=== PATIENT | male | born 1960 | race American Indian/Alaskan Native ===

== ENCOUNTER → 2024-07-12 | Outpatient (CLI) | payer BC, MEDICAID, SELFPAY ==
--- NOTE | 2024-07-12 12:35 | XR_ITS ---
Examination: Abdomen sonogram, complete Date and time of exam: Grade 4 2024 at 10 3:00 PM INDICATIONS: Left flank pain beginning one month ago, diagnosis cirrhosis. Technique: Multiple real-time grayscale transabdominal sonographic images of the abdomen have been obtained. Findings: Negative for gallstones Gallbladder wall 0.7 cm with edema Common bile duct 0.2 cm Pancreas obscured by bowel gas Aorta not enlarged Liver 15.2 cm irregular contour fatty liver Normal hepatopedal portal venous flow Patent IVC Right kidney 10.3 x 6.2 x 3.5 cm cortex 2.4 cm Left kidney 12.7 x 7.2 x 5.3 cm renal cortex 1.4 cm Mild renal parenchymal scar formation Spleen 8.6 cm IMPRESSION: Consider HIDA scan or MRCP follow-up to confirm acute acalculous cholecystitis Cirrhosis, no focal liver lesions
== END | disposition home or self-care (01) ==
LOC: CDIM 11:59
PROVIDERS: PCP Nurse Practitioner Family; Referring Provider Nurse Practitioner Family; Visit Provider Nurse Practitioner Family
DX: K74.60 Unspecified cirrhosis of liver (principal)
CPT/HCPCS: 76700

== ENCOUNTER → 2024-09-22 | Outpatient (CLI) | payer BC, MEDICAID, SELFPAY ==
--- NOTE | 2024-09-22 09:19 | XR_ITS ---
Examination: PA lateral chest 2 views TECHNIQUE: Upright PA lateral chest 2 views Exam date and time: September 1019 hours Comparison April 17, 2022 INDICATIONS: Coughing 3 months. FINDINGS: Early pneumonia in the right upper lobe Normal heart size Moderate osteopenia IMPRESSION: Early pneumonia in the right upper lobe
--- NOTE | 2024-09-22 09:21 | XR_ITS ---
Examination: Abdomen sonogram, complete Date and time of exam: September 22, 2024 0935 hours INDICATIONS: Diagnosis cirrhosis. Technique: Multiple real-time grayscale transabdominal sonographic images of the abdomen have been obtained. Findings: Negative for gallstones Gallbladder wall 0.54 cm Common bile duct 0.2 cm Pancreatic head 2.1 cm Mid and distal aorta not enlarged Liver 11.5 cm irregular contour mild ascites Normal hepatopedal portal venous flow Patent IVC Right kidney 10.3 cm cortex 1.6 cm Left kidney 13.6 cm in the cortex 1.9 cm Mild left renal parenchymal scar formation Spleen 9.3 cm IMPRESSION: Abnormal thickening of the gallbladder wall, which may relate to the patient's ascites Cirrhosis No focal liver lesions
== END | disposition home or self-care (01) ==
PROVIDERS: PCP Nurse Practitioner Family; Referring Provider Nurse Practitioner Family; Visit Provider Nurse Practitioner Family
DX: K70.31 Alcoholic cirrhosis of liver with ascites (principal); K82.8 Other specified diseases of gallbladder; J18.9 Pneumonia, unspecified organism
CPT/HCPCS: 71046; 76700

== ENCOUNTER → 2025-01-27 | Outpatient (CLI) | payer BC, OTHER, SELFPAY ==
--- NOTE | 2025-01-27 | XR_ITS ---
Examination: Retroperitoneal ultrasound, complete Technique: Multiple high resolution grayscale images of the retroperitoneum obtained, including kidneys and bladder. Exam date and time:January 27, 2025 0741 hours INDICATIONS: Bilateral flank pain beginning 2 weeks ago FINDINGS: Right kidney 11.4 cm cortex 2.3 cm Midpole 9 mm, 6 mm calculi Left kidney 12.4 cm cortex 2.0 cm Moderate renal scar formation Contracted urinary bladder No prostatomegaly IMPRESSION: Nonobstructing right renal calculi, no hydronephrosis Moderate bilateral renal parenchymal scar formation
== END | disposition home or self-care (01) ==
LOC: CDIM 07:27
PROVIDERS: PCP Nurse Practitioner Family; Referring Provider Nurse Practitioner Family; Visit Provider Nurse Practitioner Family
DX: N20.0 Calculus of kidney (principal); N28.89 Other specified disorders of kidney and ureter
CPT/HCPCS: 76770

== ENCOUNTER 2025-03-13 17:14 | Inpatient (IN) | payer BC, OTHER, SELFPAY ==
[2025-03-13 17:22] VITALS: BP 138/63; PULSE 107; RESP 18; TEMP 37.2; O2SAT 98; BMI 32.9
--- NOTE | 2025-03-13 17:26 | XR_ITS ---
Examination: CT abdomen and pelvis without contrast. Coronal 3-D reconstructions. Sagittal 2-D reconstructions. Date and time of exam:March 13, 2025 1742 hrs., Comparison September 09, 2023. Indications: Generalized abdominal pain and swelling today diagnosis cirrhosis CTDI: vol (mGy): 10.6 DLP: (mGycm): 693 Technique: Axial images of the abdomen have been obtained, 3 mm slice thickness Intravenous contrast material has not been administered. Low dose protocols were performed. One or more of the following dose reduction techniques were used; automated exposure control, adjustment of the mA and/or KV according to patient size, use of iterative reconstruction technique. Findings: Small right pleural effusion Small pericardial effusion Cirrhosis, liver nodular in contour Significant ascites Mild splenomegaly Suspicious for esophageal varices Perigastric varices No pancreatic mass No renal or ureteral calculi No bowel obstruction No diverticulitis Prostatomegaly AP dimension 3.6 cm Contracted urinary bladder Fat-containing inguinal hernias Significant osteopenia Impression: Cirrhosis. Significant ascites. Mild splenomegaly. Suspicious for esophageal varices, gastric varices No renal or ureteral calculi, no hydronephrosis No bowel obstruction
--- NOTE | 2025-03-13 17:27 | PD.EDRME ---
Rapid Medical Screening Exam RME Arrival date/time: 03/13/25 17:14 This is a case of 65-year-old male with history of ascites and cirrhosis came in in the emergency room due to abdominal pain and abdominal distention patient is scheduled to have paracentesis but due to cough and congestion that is patient procedure is delayed due to worsening of the symptoms this patient decided to stop consult here in the emergency room Chief Complaint: Flu Like Symptoms Time Seen by Provider: 03/13/25 17:22 Vital signs: Vital Signs Temperature 98.9 F 03/13/25 17:22 Pulse Rate 107 H 03/13/25 17:22 Respiratory Rate 18 03/13/25 17:22 Blood Pressure 138/63 H 03/13/25 17:22 Pulse Oximetry (%) 98 03/13/25 17:22 Oxygen Delivery Method Room Air 03/13/25 17:22
[2025-03-13 17:46] LABS: Basophils # (Auto) 0.1 Thou/mm3 (0.0-0.2); Basophils % (Auto) 1 % (0-2.5); Eosinophils # (Auto) 0.3 Thou/mm3 (0.0-0.5); Eosinophils % (Auto) 4 % (0-10); Hematocrit 23.3 % (41.0-53.0); Immature Granulocytes Auto 0.02 Thou/mm3 (0.00-0.00); Lymphocytes # (Auto) 1.9 Thou/mm3 (1.0-4.8); Lymphocytes % (Auto) 23 % (10-50); Mean Corpuscular HGB Conc 33.5 g/dl (31.0-37.0); Mean Corpuscular Hemoglobin 31.8 pg (25.0-35.0); Mean Corpuscular Volume 95 fL (80-100); Monocytes # (Auto) 1.0 Thou/mm3 (0.0-0.8); Monocytes % (Auto) 12 % (0-12); Neutrophils # (Auto) 5.0 Thou/mm3 (1.8-7.7); Neutrophils % (Auto) 60 % (37-80); Nucleated Red Blood Cell # 0.00 Thou/mm3 (0.00-0.00); Nucleated Red Blood Cell % 0 /100 WBC (0); Platelet Count 101 Thou/mm3 (140-440); RDW Standard Deviation 57.1 fL (35.1-43.9); Red Blood Count 2.45 Miln/mm3 (4.50-5.90); White Blood Count 8.3 Thou/mm3 (3.8-10.6)
[2025-03-13 17:55] LABS: Hemoglobin 7.8 g/dL (13.5-16.0)
[2025-03-13 18:23] LABS: Alanine Aminotransferase 18 U/L (10-49); Albumin, Serum 3.0 gm/dL (3.4-4.8); Albumin/Globulin Ratio 0.8 (1.2-2.2); Alkaline Phosphatase 84 U/L (46-116); Anion Gap 10 (7-16); Aspartate Amino Transferase 46 U/L (0-34); BUN/Creatinine Ratio 5 Ratio (12-20); Bilirubin,Total 6.3 mg/dL (0.3-1.2); Blood Urea Nitrogen < 5 mg/dL (9-23); Calcium 8.6 mg/dL (8.3-10.6); Calcium (Corrected) 9.4 mg/dL (8.5-10.1); Carbon Dioxide 21.8 mMol/L (20.0-31.0); Chloride 105 mMol/L (98-107); Creatinine (Component) 1.0 mg/dL (0.6-1.3); Estimated Creatinine Clearance 78.9 mL/min (>60); Globulin 3.8 gm/dL (2.3-3.5); Glucose 89 mg/dL (74-106); Lipase 49 U/L (12-53); Osmolality,Calculated 270 (275-295); Potassium 2.9 mMol/L (3.4-5.1); Sodium 137 mMol/L (136-145); Total Protein 6.8 gm/dL (5.7-8.2); eGFR > 60 See Note
[2025-03-13 19:42] LABS: Collection Type, Urine Voided; Squamous Epithelial Cell,Urine 0 /hpf (0-5)
[2025-03-13 19:58] LABS: Bacteria,Urine Rare; Bilirubin,Urine 1+ (Negative); Blood,Urine Negative (Negative); Clarity,Urine Clear (Clear/Hazy); Color,Urine Drk-Yellow (Lt Yel-Yel); Glucose, Urine Negative (Negative); Ketones,Urine Negative (Negative); Leukocyte Esterase,Urine Negative (Negative); Nitrite,Urine Negative (Negative); PH,Urine 6.0 (5.0-7.0); Protein,Urine Negative (Neg - Trace); RBC,Urine 2 /hpf (0-3); Specific Gravity,Urine 1.017 (1.001-1.035); Urobilinogen,Urine 12 mg/dL (0.0-1.0); WBC,Urine < 1 /hpf (0-5)
[2025-03-13 20:01] LABS: Amorphous Crystals,Urine Present (Absent)
--- NOTE | 2025-03-13 20:54 | PD.EDADULT ---
ED General RME/HPI General Chief complaint: Flu Like Symptoms Stated complaint: COUGH, NO APPETITE X 7 DAYS Time Seen by Provider: 03/13/25 17:22 Arrival date/time: 03/13/25 17:14 RME / HPI RME / HPI narrative: 03/13/25 17:14 64 y/o male with PMHx cirrhosis secondary to alcohol alcohol abuse, hyperlipidemia, and hypertension comes in for an evaluation of worsening abdominal distention and some abdominal pain. Patient reports that his abdomen has been worsening over time, and was post to get a paracentesis done, however has not been able to get it done yet. [place] currently not on any water pills. He says he has had an endoscopy before done over 4 years ago. He says he was diagnosed with cirrhosis 6 months ago clinically, however has not had a liver biopsy. He has not drank in over 3 months. Denies any chest pain, shortness of breath, nausea, vomiting, however complains of a cough at this time. He denies any hematochezia, hematemesis. He does endorse decreased appetite as well. Related Data Home Medications ?Medication ?Instructions ?Recorded ?Confirmed carvedilol 3.125 mg tablet 3.125 mg PO BID 04/17/22 04/17/22 losartan 50 mg tablet 50 mg PO DAILY 04/17/22 04/17/22 simvastatin 10 mg tablet 10 mg PO HS 04/17/22 04/17/22 Previous Rx's ?Medication ?Instructions ?Recorded pantoprazole 40 mg tablet,delayed 40 mg PO BID #60 tabs 04/19/22 release sucralfate 100 mg/mL oral 1 g (10 mL) PO QID #200 mL 04/19/22 suspension Allergies Allergy/AdvReac Type Severity Reaction Status Date / Time bee pollen Allergy Swelling Verified 03/13/25 17:19 of Lip/Tongue/Throat peach Allergy Swelling Verified 03/13/25 17:19 of Lip/Tongue/Throat Review of Systems Review of Systems Narrative Review of Systems: 12 point ROS reviewed and is otherwise negative unless stated directly in the HPI ED Exam Narrative Physical exam: General: AAOx3, NAD, wearing glasses HEENT: Moist mucous membranes, conjunctiva clear, EOMI, PERRLA, scleral icterus present bilaterally Cardiovascular: S1, S2, radial pulses +2 bilat, RRR Pulmonary: CTAB bilat no cough, no wheezing GI: Significant abdominal distention in addition to positive fluid wave shift, hemangiomas present, slight tenderness to palpation Extremities: No presence of trace or pitting edema in lower extremities bilaterally, dorsalis pedis pulses +2 bilaterally Neuro: AAOx3, no focal motor or sensory deficits in the UE or LE bilat Psych: Good judgement, thought and behavior Course Quality Measures none Orders Category Date Time Status Admit to Inpatient Status Routine Admission 03/13/25 23:48 Active Patient Condition Routine Admission 03/13/25 23:48 Ordered Bedside COVID-19 Antigen Test NOW Care 03/13/25 17:26 Active Bedside Influenza A&B Antigen Test NOW Care 03/13/25 17:26 Completed Continuous Pulse Oximetry NOW Care 03/13/25 23:53 Active EKG (ED ONLY) *Do not use* NOW Care 03/13/25 22:01 Completed Endoscopy Consents .On arrival Care 03/13/25 23:27 Active Flu & Pneumonia Vaccine Screen ONCE Care 03/14/25 00:03 Active Insert IV NOW Care 03/13/25 22:00 Active May take PO meds w/sips of H2O NEEDED Care 03/13/25 23:48 Active Miscellaneous Nursing Order NOW Care 03/13/25 23:24 Active NPO NOW Care 03/13/25 23:52 Active NPO after Midnight ONCE Care 03/13/25 22:51 Active Notify provider NEEDED Care 03/13/25 23:48 Active Obtain weight daily Care 03/13/25 23:50 Active Occult Blood,Stool (Nursing) NOW Care 03/13/25 22:19 Active Sequential Compression Device QSHIFT Care 03/13/25 23:58 Active Strict Intake and Output Routine Care 03/13/25 22:00 Ordered Urinary Catheter QS Care 03/13/25 23:53 Active Consult to Gastroenterology Stat Cons 03/13/25 22:50 Ordered Diet NPO (NOW) Diet 03/13/25 23:52 Active Diet NPO after Midnight Diet 03/14/25 00:[address] abdomen pelvis wo con Stat Exams 03/13/25 17:26 Completed EKG (ED Only) Stat Exams 03/13/25 22:01 Draft Blood Culture (Lab) Stat Lab 03/13/25 23:00 Received CBC AM DRAW Lab 03/14/25 05:00 Ordered CBC AM DRAW Lab 03/15/25 05:00 Ordered CBC AM DRAW Lab 03/16/25 05:00 Ordered CBC Stat Lab 03/13/25 17:33 Completed CMP [Comprehensive Metabolic Panel] Stat Lab 03/13/25 17:33 Completed Comprehensive Metabolic Panel AM DRAW Lab 03/14/25 05:00 Ordered Comprehensive Metabolic Panel AM DRAW Lab 03/15/25 05:00 Ordered Comprehensive Metabolic Panel AM DRAW Lab 03/16/25 05:00 Ordered Influenza A & B Rapid Panel Stat Lab 03/13/25 20:50 Completed Influenza A & B Rapid Panel Stat Lab 03/13/25 22:01 Ordered Lipase Stat Lab 03/13/25 17:33 Completed Magnesium AM DRAW Lab 03/14/25 05:00 Ordered Magnesium AM DRAW Lab 03/15/25 05:00 Ordered Magnesium AM DRAW Lab 03/16/25 05:00 Ordered PTT [Partial Thromboplastin Time] Stat Lab 03/13/25 17:33 Completed Phosphorous AM DRAW Lab 03/14/25 05:00 Ordered Phosphorous AM DRAW Lab 03/15/25 05:00 Ordered Phosphorous AM DRAW Lab 03/16/25 05:00 Ordered Prothrombin Time with INR AM DRAW Lab 03/14/25 05:00 Ordered Prothrombin Time with INR Stat Lab 03/13/25 17:33 Completed Urinalysis Stat Lab 03/13/25 19:10 Completed Acetaminophen Tab [Tylenol Tab] Med 03/13/25 23:48 Ordered 650 mg PO Q6H PRN Acetaminophen Tab [Tylenol Tab] Med 03/13/25 23:53 Ordered 650 mg PO Q6H PRN Benzonatate [Tessalon] Med 03/13/25 21:59 Discontinued 100 mg PO X1 ONE Furosemide Inj [Lasix Inj] Med 03/14/25 09:00 Ordered 40 mg IVP QDAY Furosemide Inj [Lasix Inj] Med 03/13/25 21:59 Discontinued 40 mg IVP X1 ONE Ondansetron Inj [Zofran Inj] Med 03/13/25 23:48 Ordered 4 mg IVP Q6H PRN Pantoprazole Inj [Protonix Inj] Med 03/14/25 09:00 Active 40 mg IVP BID Pantoprazole Inj [Protonix Inj] Med 03/13/25 21:59 Discontinued 80 mg IVP X1 ONE Potassium Chloride [K-Dur] Med 03/13/25 20:53 Discontinued 40 meq PO X1 ONE Senna [Senokot] Med 03/13/25 23:58 Ordered 1 tab PO QDAY PRN Sodium Chloride 0.9% [Ns] 100 ml Med 03/13/25 21:59 Active Octreotide Acet Inj [SandoSTATIN Inj] 1,000 mcg IV 50 mcg/hr Sodium Chloride 0.9% [Ns] 100 ml Med 03/13/25 21:59 Pending Octreotide Acet Inj [SandoSTATIN Inj] 1,000 mcg IV 50 mcg/hr Spironolactone [Aldactone] Med 03/14/25 09:00 Ordered 50 mg PO BID amLODIPine BESYLATE [Norvasc] Med 03/14/25 09:00 Ordered 5 mg PO QDAY carVEDILOL [Coreg] Med 03/14/25 08:00 Ordered 3.125 mg PO BIDWM carVEDILOL [Coreg] Med 03/13/25 22:49 Discontinued 3.125 mg PO X1 ONE cefTRIAXone/D5w 1gm IV premix [Rocephin/D5w 1gm IV Med 03/13/25 22:54 Discontinued premix] 1 gm in 50 ml IV X1 Code Status Routine Oth 03/13/25 23:48 Ordered Vital Signs Vital signs: Vital Signs Temperature 98.9 F 03/13/25 17:22 Pulse Rate 107 H 03/13/25 17:22 Respiratory Rate 18 03/13/25 17:22 Blood Pressure 138/63 H 03/13/25 17:22 Pulse Oximetry (%) 98 03/13/25 17:22 Oxygen Delivery Method Room Air 03/13/25 17:22 Discharge Plan Plan Patient Disposition: Admit Acute Care w/in Hospital Prescriptions/Referrals Prescriptions/Med Rec: No Action losartan 50 mg tablet 50 mg PO DAILY Patient Comments: TAKE 1 TABLET BY MOUTH EVERY DAY simvastatin 10 mg tablet 10 mg PO HS Patient Comments: TAKE 1 TABLET BY MOUTH EVERY DAY IN THE EVENING carvedilol 3.125 mg tablet 3.125 mg PO BID Patient Comments: TAKE 1 TABLET BY MOUTH TWICE A DAY FOR 3 MONTHS sucralfate 100 mg/mL Suspension 1 g PO QID Qty: 200 0RF pantoprazole 40 mg tablet,delayed release (DR/EC) 40 mg PO BID Qty: 60 0RF Referrals: Jose Luque PA-C [Primary Care Provider] - In 1 week Problem List Clinical Impression: Upper gastrointestinal hemorrhage, Cirrhosis Patient/Caregiver Discharge Instructions Print Language: Bruneian Stand Alone Forms: Josefina Award Info., Patient Portal Info Letter MDM Narrative MDM hospital course (for use when minimal MDM required): 2052: With Dr. Bhatt, GI, who recommends admission for further workup of acute blood loss anemia, and also decompensated liver cirrhosis. Will also give oral potassium. 2134: GUICHO performed with FOBT positive. Will initiate octreotide drip in addition to loading dose Protonix. Lasix 40 mg IV given also. Also given Tessalon pearls for cough. 2299: Spoke with primary hospitalist team who will review the case for admission. Also ordered Coreg 3.125, and Rocephin for SBP prophylaxis. 110: Hospitalist team accepts patient for admission. Medication Administration(s) Medication Administration History Acetaminophen (Acetaminophen 325 Mg Tablet) 650 mg PO Q6H PRN PRN Reason: Fever >100.4 Stop: 04/12/25 23:47 Acetaminophen (Acetaminophen 325 Mg Tablet) 650 mg PO Q6H PRN PRN Reason: PAIN SCALE 1-3 (mild Stop: 04/12/25 23:52 Amlodipine Besylate (Amlodipine Besylate 5 Mg Tablet) 5 mg PO QDAY OSMAN Stop: 04/13/25 08:59 Carvedilol (Carvedilol 3.125 Mg Tablet) 3.125 mg PO BIDWM OSMAN Stop: 04/13/25 07:59 Furosemide (Furosemide Inj 10 Mg/Ml 4ml Vial) 40 mg IVP QDAY OSMAN Stop: 04/13/25 08:59 Octreotide Acetate 1,000 mcg/ (Sodium Chloride) 102 mls @ 5.1 mls/hr IV .Q20H ONE; Protocol Stop: 03/14/25 17:58 Last Admin: 03/13/25 22:31 Dose: 50 mcg/hr, 5.1 mls/hr Documented By: LIN Octreotide Acetate 1,000 mcg/ (Sodium Chloride) 102 mls @ 5.1 mls/hr IV .Q20H OSMAN; Protocol Stop: 03/18/25 21:59 Ondansetron HCl (Ondansetron Inj 2 Mg/Ml Inj 2 Ml) 4 mg IVP Q6H PRN; Protocol PRN Reason: NAUSEA OR VOMITING Stop: 04/12/25 23:47 Pantoprazole Sodium (Pantoprazole Inj 40 Mg Vial) 40 mg IVP BID OSMAN Stop: 04/13/25 08:59 Sennosides (Senna Tablet) 1 tab PO QDAY PRN; Protocol PRN Reason: CONSTIPATION Stop: 04/13/25 08:59 Spironolactone (Spironolactone 25 Mg Tablet) 50 mg PO BID OSMAN Stop: 04/13/25 08:59 Discontinued Medications Benzonatate (Benzonatate 100 Mg Capsule) 100 mg PO X1 ONE; Protocol Stop: 03/13/25 22:00 Last Admin: 03/13/25 22:50 Dose: 100 mg Documented By: LIN Carvedilol (Carvedilol 3.125 Mg Tablet) 3.125 mg PO X1 ONE Stop: 03/13/25 22:50 Last Admin: 03/13/25 23:10 Dose: 3.125 mg Documented By: POPEYE Furosemide (Furosemide Inj 10 Mg/Ml 4ml Vial) 40 mg IVP X1 ONE Stop: 03/13/25 22:00 Last Admin: 03/13/25 22:29 Dose: 40 mg Documented By: LIN Ceftriaxone Sodium/Dextrose (Rocephin/D5w 1gm Iv Premix) 1 gm in 50 mls @ 100 mls/hr IV X1 ONE Stop: 03/13/25 23:23 Last Admin: 03/13/25 23:27 Dose: 100 mls/hr Documented By: LIN Pantoprazole Sodium (Pantoprazole Inj 40 Mg Vial) 80 mg IVP X1 ONE Stop: 03/13/25 22:00 Last Admin: 03/13/25 22:29 Dose: 80 mg Documented By: LIN Potassium Chloride (Potassium Chloride 20 Meq Tabcr) 40 meq PO X1 ONE Stop: 03/13/25 20:54 Last Admin: 03/13/25 21:37 Dose: 40 meq Documented By: LIN Consultations/Discussions re: Management Consult #1: Date/time: 03/13/25 08:53 pm Physician, specialty, service, details: 2052: With Dr. Bhatt, GI, who recommends admission for further workup of acute blood loss anemia, and also decompensated liver cirrhosis. Will also give oral potassium. Consult #2: Date/time: 03/13/25 11:00 pm Physician, specialty, service, details: 2300: Spoke with primary hospitalist team who will review the case for admission. 0011: Hospitalist team accepts patient for admission Diagnosis Diagnoses ruled out and/or further discussions: Decompensated liver cirrhosis, GI bleed, PUD
[2025-03-13 21:19] LABS: Influenza A Ag Negative; Influenza B Ag Negative
[2025-03-13 21:22] LABS: INR 1.5 (0.9-1.3); Partial Thromboplastin Time 29.1 Seconds (22.0-36.0); Prothrombin Time 15.8 Seconds (9.0-12.2)
[2025-03-13 21:34] VITALS: BP 153/69; PULSE 106; RESP 20; TEMP 36.9; O2SAT 100
--- NOTE | 2025-03-13 22:01 | EKG_ITS ---
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
[2025-03-13 22:29] VITALS: BP 137/74; PULSE 102
[2025-03-13] MEDS: FUROSEMIDE INJ 10 MG/ML 4ML VIAL 40 MG IVP (22:29)
[2025-03-13] MEDS: OCTREOTIDE ACET INJ 1,000 MCG in SODIUM CHLORIDE 0.9% 100 ML 5.1 MCG IV (22:31)
[2025-03-13] MEDS: BENZONATATE 100 MG CAPSULE PO (22:50)
[2025-03-13 23:10] VITALS: BP 136/75; PULSE 99
--- NOTE | 2025-03-13 23:24 | PD.IMCONS ---
HPI Data of Consult Primary Care Provider: Jose Luque PA-C Consult Narrative Reason for consult: Ascites pain abdomen FOBT + H/H 7.0/20.1 History of present illness: 64 is a male came to the emergency room because of increasing abdominal pain discomfort and abdominal girth He was trying to get an outpatient paracentesis could not be arranged He is a heavy drinker of alcohol stop drinking about [address] scan of the abdomen pelvis without contrast showed ascites splenomegaly cirrhosis of the liver esophageal varices and gastric varices Abdominal ultrasound on 09/22/2024 showed thickened gallbladder wall Patient was found to be FOBT positive Case discussed with internal medicine resident patient started on IV Protonix advised to start on broad-spectrum antibiotic in the setting of SBP recommend large-volume paracentesis as well as octreotide infusion and possible endoscopy in the morning cc:: cc: Review of Systems Review of Systems Systems Reviewed: All systems reviewed, normal except as documented Past Medical History Surgical History OTHER SURGICAL HX: Essential hypertension Meds Home Medications and Allergies Home Medications ?Medication ?Instructions ?Recorded ?Confirmed ?Type amlodipine 5 mg tablet 5 mg PO QDAY 03/14/25 03/14/25 History cholecalciferol (vitamin D3) 1,250 1,250 mcg PO QWEEK 03/14/25 03/14/25 History mcg (50,000 unit) capsule pantoprazole 20 mg tablet,delayed 40 mg PO QDAY 03/14/25 03/14/25 History release sodium bicarbonate 325 mg tablet 325 mg PO QDAY 03/14/25 03/14/25 History vitamin B complex-vitamin C-folic 1 tab PO Q24H 03/14/25 03/14/25 History acid 0.8 mg tablet (Jeanne-Angelica) Allergies Allergy/AdvReac Type Severity Reaction Status Date / Time bee pollen Allergy Swelling Verified 03/13/25 17:19 of Lip/Tongue/Throat peach Allergy Swelling Verified 03/13/25 17:19 of Lip/Tongue/Throat Exam Vital Signs Temp Pulse Resp BP Pulse Ox O2 Del Method 98.4 F 99 20 136/75 H 100 Room Air 03/13/25 21:34 03/13/25 23:10 03/13/25 21:34 03/13/25 23:10 03/13/25 21:34 03/13/25 21:34 Constitutional Comments: Chronically ill-appearing Routine Respiratory Exam Comments: Normal to auscultation Routine Abdominal Exam Comments: Positive for ascites Results Labs 03/14/25 15:15 03/14/25 04:12 Labs: Short CBC 03/13/25 Range/Units 17:33 WBC 8.3 (3.8-10.6) Thou/mm3 Hgb 7.8 L (13.5-16.0) g/dL Hct 23.3 L (41.0-53.0) % Plt Count 101 L (140-440) Thou/mm3 BMP 03/13/25 17:33 Sodium 137 Potassium 2.9 L Chloride 105 Carbon Dioxide 21.8 BUN < 5 L Creatinine 1.0 Glucose 89 Calcium 8.6 Liver Function 03/13/25 Range/Units 17:33 Total Bilirubin 6.3 H (0.3-1.2) mg/dL AST 46 H (0-34) U/L ALT 18 (10-49) U/L Alkaline Phosphatase 84 (46-116) U/L Albumin 3.0 L (3.4-4.8) gm/dL Urine 03/13/25 Range/Units 19:10 Urine Color Drk-Yellow A (Lt Yel-Yel) Urine Clarity Clear (Clear/Hazy) Urine pH 6.0 (5.0-7.0) Ur Specific [place] 1.017 (1.001-1.035) Urine Protein Negative (Neg - Trace) Urine Glucose (UA) Negative (Negative) Assessment and Plan Additional Assessment & Plan Additional Plan: # Abdominal pain rule out SBP coverage with Rocephin as well as large-volume paracentesis # Intractable ascites in the setting of advanced portal hypertension due to cirrhotic liver disease due to moderate to severe consumption of alcohol although patient has been abstinent for 3 months Recommend large-volume paracentesis ultrasound-guided by radiologist Lasix 40 mg IV push daily Spironolactone 25 mg p.o. twice daily # Essential hypertension continue carvedilol and losartan Also recommend AFP Consent obtained for fiberoptic esophagogastroduodenoscopy with possible biopsy possible therapeutic intervention under intravenous moderate sedation Serial CBC Thank you very much for the opportunity to participate in the care of this patient
[2025-03-13] MEDS: cefTRIAXone/D5w 1gm IV premix 1 GM/50 ML BAG IV (23:27)
[2025-03-13 23:32] VITALS: BP 137/72; PULSE 96; RESP 20; TEMP 37; O2SAT 98
--- NOTE | 2025-03-13 23:40 | ESHP_ITS ---
<Statement entered by Haim Maciel MD - 03/14/25 16:11> I have discussed and was present for the essential components of the history, physical examination, diagnosis, and treatment plan with the resident. I agree with the patient's care as documented by the resident and amended herein by me. Haim Maciel MD FACP. Documentation for date of: 03/13/25 HPI History of Present Illness Chief complaint: abdominal distension History of present illness: This is a 64 year old male with Past medical history of Hypertension, Hyperlipidemia presented to the ED with abdominal distension. He has been experiencing abdominal distension for 2 weeks which is gradually increasing and associated with nausea and decreased appetite.. He is a known alcoholic and diagnosed with liver cirrhosis 1 year ago. He denies any paracentesis in the past. He complains of fatigue and occasional cough which is dry but denies any Vomiting,abdominal Pain,Hematemesis, Melena, Shortness of breath,Chest pain ,fever. Patient is admitted for management of decompensated liver cirrhosis. ED Visit : BP:153/69, DC:96bpm , Temp:98.6 F ,Resp :20 Saturating 98 % on room air. Pertinent Labs are Hb:7.8 , WBC:8.3, PLT:101 , Sodium 137 ,Potassium:2.9 ,Total Bilrubin:6.3 ,AST:46, ALT:18, ALP:84 , Urine Bilrubin :1+, PT:15.8, INR-1.5 EKG shows Sinus Tachycardia, CT Scan shows Cirrhosis ,Ascites, Suspicious for Gastric and esophageal varices and Mild splenomegaly. Past Medical History: Hypertension- Amlodipine , Hyperlipidemia- Simvastatin. Kidney problem takes NaHco3 and Vitamin D Social History: Drinks 6 tall beers and 2 whisky shots everyday for 25 years. He occasionally uses Marijuana. Last drink was 1 month back . Family History: history of cirrhosis in his twin brother. ROS: As stated above. Review of Systems Review of Systems Systems Reviewed: All systems reviewed, normal except as documented Exam Vital Signs Temp Pulse Resp BP Pulse Ox O2 Del Method 98.6 F 96 20 137/72 H 98 Room Air 03/13/25 23:32 03/13/25 23:32 03/13/25 23:32 03/13/25 23:32 03/13/25 23:32 03/13/25 23:32 Narrative Exam GENERAL: NAD, AAOx3 HEENT: Moist mucosa. Eyes open, symmetrical, & Yellowing of both eyes are present - Icterus CARDIO: Normal Heart sounds. No Murmurs. PULM: occasional coughing but no dyspnea .CTA B/L, no R/W/R GI: Abdomen is Tense distended. Tenderness on palpation of RUQ. SKIN/MSK/EXT: Yellowing of skin noted.No wounds/rashes/amputations, no pain on palpation.Edema on B/L legs upto knee 2+. Pedal pulses present B/L NEURO: AAOx3, no focal neuro deficits, able to move all 4 extremities Results: Labs 03/13/25 17:33 03/13/25 17:33 Labs: Short CBC 03/13/25 Range/Units 17:33 WBC 8.3 (3.8-10.6) Thou/mm3 Hgb 7.8 L (13.5-16.0) g/dL Hct 23.3 L (41.0-53.0) % Plt Count 101 L (140-440) Thou/mm3 BMP 03/13/25 17:33 Sodium 137 Potassium 2.9 L Chloride 105 Carbon Dioxide 21.8 BUN < 5 L Creatinine 1.0 Glucose 89 Calcium 8.6 Liver Function 03/13/25 Range/Units 17:33 Total Bilirubin 6.3 H (0.3-1.2) mg/dL AST 46 H (0-34) U/L ALT 18 (10-49) U/L Alkaline Phosphatase 84 (46-116) U/L Albumin 3.0 L (3.4-4.8) gm/dL Urine 03/13/25 Range/Units 19:10 Urine Color Drk-Yellow A (Lt Yel-Yel) Urine Clarity Clear (Clear/Hazy) Urine pH 6.0 (5.0-7.0) Ur Specific [place] 1.017 (1.001-1.035) Urine Protein Negative (Neg - Trace) Urine Glucose (UA) Negative (Negative) Quality Measures Quality Measures none Medications Home Medications and Allergies Home Medications ?Medication ?Instructions ?Recorded ?Confirmed ?Type carvedilol 3.125 mg tablet 3.125 mg PO BID 04/17/22 History losartan 50 mg tablet 50 mg PO DAILY 04/17/2204/08 History simvastatin 10 mg tablet 10 mg PO HS 04/17/22 2 History Allergies Allergy/AdvReac Type Severity Reaction Status Date / Time bee pollen Allergy Swelling Verified 03/13/25 17:19 of Lip/Tongue/Throat peach Allergy Swelling Verified 03/13/25 17:19 of Lip/Tongue/Throat Visit Medications Octreotide Acetate 1,000 mcg/ (Sodium Chloride) 102 mls @ 5.1 mls/hr IV .Q20H ONE; Protocol Stop: 03/14/25 17:58 Last Admin: 03/13/25 22:31 Dose: 50 mcg/hr, 5.1 mls/hr Octreotide Acetate 1,000 mcg/ (Sodium Chloride) 102 mls @ 5.1 mls/hr IV .Q20H OSMAN; Protocol Stop: 03/18/25 21:59 Pantoprazole Sodium (Pantoprazole Inj 40 Mg Vial) 40 mg IVP BID OSMAN Stop: 04/13/25 08:59 Discontinued Medications Benzonatate (Benzonatate 100 Mg Capsule) 100 mg PO X1 ONE; Protocol Stop: 03/13/25 22:00 Last Admin: 03/13/25 22:50 Dose: 100 mg Carvedilol (Carvedilol 3.125 Mg Tablet) 3.125 mg PO X1 ONE Stop: 03/13/25 22:50 Last Admin: 03/13/25 23:10 Dose: 3.125 mg Furosemide (Furosemide Inj 10 Mg/Ml 4ml Vial) 40 mg IVP X1 ONE Stop: 03/13/25 22:00 Last Admin: 03/13/25 22:29 Dose: 40 mg Ceftriaxone Sodium/Dextrose (Rocephin/D5w 1gm Iv Premix) 1 gm in 50 mls @ 100 mls/hr IV X1 ONE Stop: 03/13/25 23:23 Last Admin: 03/13/25 23:27 Dose: 100 mls/hr Pantoprazole Sodium (Pantoprazole Inj 40 Mg Vial) 80 mg IVP X1 ONE Stop: 03/13/25 22:00 Last Admin: 03/13/25 22:29 Dose: 80 mg Potassium Chloride (Potassium Chloride 20 Meq Tabcr) 40 meq PO X1 ONE Stop: 03/13/25 20:54 Last Admin: 03/13/25 21:37 Dose: 40 meq Assessment & Plan Plan This is a 64 year old male with Past medical history of Hypertension, Hyperlipidemia presented with abdominal distension. CT Findings suspicious of Gastric and esophageal varices.He was admitted for Decompensated Liver cirrhosis. #Acute Decompensated Cirrhosis #Esophageal Varices #Gastric varices #Ascites Patient presented with progressive abdominal Distension.CT scans suspicious of Gastric and esophageal varices Total Bilrubin:6.3 ,AST:46 , PT:15.8, INR-1.5 ,Urine Bilrubin-1+. MELD Score: 18 points - Octeotride drip started - IV Pantaprazole loading dose given and currently on 40 mg BID - Carvedilol 3.125mg bID - Lasix 40mg qday - scheduled Spironolactone from 03/14. - ER Consulted Gastroenterology: Scheduled Endoscopy on 03/14 - Ordered Paracentesis and ascitic fluid studies. #Hypokalemia. Lab value on 03/13 shows potassium-2.9 -KCL 40mEq given in ED. - Monitor potassium on next lab values. #Hypertension: - Continue Home medication amlodipine 5mg # Hyperlipidemia Continue Home Mediaction Simvastatin Code status: Full DVT prophylaxis:SCD Diet: NPO Lines: PIV Supplemental O2: none Disposition: Tele I discussed and reviewed this case with my senior and my attending . Rayo Saxena MD-PGY1
[2025-03-14] VITALS (21 sets, daily range): BP systolic 102–131; BP diastolic 55–67; PULSE 60–80; RESP 14–20; TEMP 36.3–37.2; O2SAT 91–100; BMI 31.8
--- NOTE | 2025-03-14 03:36 | PC.NURSE ---
patient refused burton catheter in ER and at bedside, states has been having good urine output, states filled up 3 urine bottles in the ER . Called Dr. Saxena regarding urinary catheter, per doctor no insertion needed at this time. No new orders received.
--- NOTE | 2025-03-14 03:41 | PC.NURSE ---
patient uncertain of home medications, per patient , Eugenia will know more about medication list, educated patient on bringing medication list for med rec.
--- NOTE | 2025-03-14 05:21 | XR_ITS ---
Examination: Ultrasound-guided paracentesis Abdominal sonogram limited Date and time of exam: March 14, 2025, 1348 hours INDICATIONS: Cirrhosis, increasing ascites abdominal distention this week Informed consent provided. A timeout was completed verifying correct patient, procedure, site, positioning, and special adequate movement if applicable. Technique: Multiple sonographic images of the abdomen have been obtained. Appropriate area for paracentesis was marked. Local anesthesia is obtained with 1% lidocaine. Yueh catheter is successfully introduced. Findings: Abdominal sonographic images demonstrate sufficient ascitic fluid for paracentesis. After placing the Yueh catheter, 2750 cc of fluid were successfully removed. During and after completion of the procedure the patient appear in satisfactory and stable condition with no complications observed. Estimated blood loss 0 cc Impression: Abdominal ascites Successful ultrasound-guided paracentesis as described above
[2025-03-14 05:52] LABS: Basophils # (Auto) 0.0 Thou/mm3 (0.0-0.2); Basophils % (Auto) 1 % (0-2.5); Eosinophils # (Auto) 0.3 Thou/mm3 (0.0-0.5); Eosinophils % (Auto) 5 % (0-10); Hematocrit 20.8 % (41.0-53.0); Immature Granulocytes Auto 0.02 Thou/mm3 (0.00-0.00); Lymphocytes # (Auto) 1.4 Thou/mm3 (1.0-4.8); Lymphocytes % (Auto) 22 % (10-50); Mean Corpuscular HGB Conc 33.7 g/dl (31.0-37.0); Mean Corpuscular Hemoglobin 32.3 pg (25.0-35.0); Mean Corpuscular Volume 96 fL (80-100); Monocytes # (Auto) 0.7 Thou/mm3 (0.0-0.8); Monocytes % (Auto) 12 % (0-12); Neutrophils # (Auto) 3.8 Thou/mm3 (1.8-7.7); Neutrophils % (Auto) 60 % (37-80); Nucleated Red Blood Cell # 0.00 Thou/mm3 (0.00-0.00); Nucleated Red Blood Cell % 0 /100 WBC (0); Platelet Count 89 Thou/mm3 (140-440); RDW Standard Deviation 58.2 fL (35.1-43.9); Red Blood Count 2.17 Miln/mm3 (4.50-5.90); White Blood Count 6.2 Thou/mm3 (3.8-10.6)
[2025-03-14 06:01] LABS: INR 1.7 (0.9-1.3); Prothrombin Time 17.3 Seconds (9.0-12.2)
[2025-03-14 06:11] LABS: Alanine Aminotransferase 17 U/L (10-49); Albumin, Serum 2.8 gm/dL (3.4-4.8); Albumin/Globulin Ratio 0.8 (1.2-2.2); Alkaline Phosphatase 74 U/L (46-116); Anion Gap 11 (7-16); Aspartate Amino Transferase 43 U/L (0-34); BUN/Creatinine Ratio 5 Ratio (12-20); Bilirubin,Total 7.0 mg/dL (0.3-1.2); Blood Urea Nitrogen < 5 mg/dL (9-23); Calcium 8.8 mg/dL (8.3-10.6); Calcium (Corrected) 9.8 mg/dL (8.5-10.1); Carbon Dioxide 23.5 mMol/L (20.0-31.0); Chloride 103 mMol/L (98-107); Creatinine (Component) 1.0 mg/dL (0.6-1.3); Estimated Creatinine Clearance 78.9 mL/min (>60); Globulin 3.5 gm/dL (2.3-3.5); Glucose 96 mg/dL (74-106); Magnesium 1.4 mg/dL (1.6-2.6); Osmolality,Calculated 271 (275-295); Phosphorous 3.2 mg/dL (2.4-5.1); Potassium 3.3 mMol/L (3.4-5.1); Sodium 137 mMol/L (136-145); Total Protein 6.3 gm/dL (5.7-8.2); eGFR > 60 See Note
[2025-03-14 06:18] LABS: Hemoglobin 7.0 g/dL (13.5-16.0)
[2025-03-14] MEDS: Magnesium Sulfate 4 GM Ivpb 4 GM/50 ML BAG IV (08:54)
[2025-03-14] MEDS: SPIRONOLACTONE 25 MG TABLET 50 MG PO ×2 (08:55→20:56)
[2025-03-14] MEDS: POTASSIUM CHLORIDE 10% 20 MEQ/15 ML UDC 40 MEQ PO (08:55)
[2025-03-14] MEDS: FUROSEMIDE INJ 10 MG/ML 4ML VIAL 20 MG IVP (08:55)
--- NOTE | 2025-03-14 11:01 | PC.SS ---
Patient Randall Oseguera is a 64 year-old male who was admitted for ABD Distension. Patient appeared alert and oriented to self, location, and situation. Patient confirmed information on demographics. Patient reports his , Eugenia Oseguera is his surrogate decision maker, [phone]. Patien reports he does not utilize any source of DME to assist with ambulation and he is able to complete his own ADLs. Patient receives primary care with [facility] and pharmacy is [facility] for prescription medications. Upon discharge patient plans to return home. janitorial services supervisor to follow up with any discharge needs. Discharge plan: Home Next of kin: , Eugenia Oseguera
--- NOTE | 2025-03-14 12:57 | ESPR_ITS ---
<Statement entered by Mary Vela MD - 03/19/25 12:12> I reviewed above note and agree with findings and plans. I have also personally examined the patient with medicine team and went over assessment and plan with medical team including international manager and resident physician. Documentation for date of: 03/14/25 Patient is a 64-year-old male with a past medical history of hypertension, history of GERD, hyperlipidemia with decreased appetite over the past seven days with concerning features of decompensated liver cirrhosis with extensive past medical history of alcohol use disorder. Previous EGD several years ago but can not recall if varies were noted on previous EGD. Denied hematochezia or hematemesis. Denied history of hepatitis. Patient was admitted acute decompensated liver cirrhosis likely secondary to alochol use disorder with ascites and concerning features of End Stage Liver Disease given MELD score of 22 and elevated INR, low Platlets, and hyperbilurnemia. Concern for bleeding given Jaundice appearance. Carvedilol discontinued as patient has decompensated cirrhosis and would benfit from propanolol outpatient, blood pressure premiting. Spirnolactone with Lasix. Lactulose added. Paracetesis order. Monitor for total ascitic flood removal. Paitnet may benefit from Vitmain E as outpatient given history of muscle cramps given cirrhosis. Type and screen obtained. - The patient's plan was discussed with attending Dr. Dane Sung MD PGY2 Internal Medicine Subjective Subjective Interval history: Today, patient was examined at bedside; he is alert and oriented x 4, in no acute distress, and appears yellow in appearance with noted scleral icterus. His abdomen also appears distended with palpable fluid thrill. Labs today significant for BP 112/55, Hgb 7.8 -> 7.0, platelet count 101 -> 89, PT 15.8 -> 17.3, INR 1.5 -> 1.7, potassium 2.9 -> 3.3, magnesium 1.4, Tbili 5.3 -> 7.0, and AST 43. The above labs, along with a calculated MELD score of 20, are concerning for End Stage Liver disease in this patient who was admitted for acute decompensated liver cirrhosis (likely 2/2 alcohol use disorder) with ascites. Plan Updates: -Ordered paracentesis (drained 2750 cc of fluid) -Ordered ascitic fluid analysis -Started PO spironolactone 50 mg BID -Started IV Lasix 20 mg qD -Started Lactulose -Per GI recommendations, started IV octreotide infusion -Discontinued carvedilol -Ordered hepatitis panel and HIV (1&2) -Type and Screen ordered -MRSA nares Exam Vital Signs Temp Pulse Resp BP Pulse Ox O2 Del Method 97.6 F 68 15 120/66 100 Room Air 03/14/25 12:57 03/14/25 12:57 03/14/25 12:57 03/14/25 12:57 03/14/25 12:57 03/14/25 11:55 Narrative Exam GENERAL: NAD, AAOx3 HEENT: Moist mucosa. Eyes open, symmetrical, & Yellowing of both eyes are present - Icterus CARDIO: Normal Heart sounds. No Murmurs. PULM: Occasional coughing but no dyspnea. CTA B/L, no R/W/R GI: Abdomen is Tense distended. Tenderness on palpation of RUQ. Palpable fluid thrill. SKIN/MSK/EXT: Yellowing of skin noted.No wounds/rashes/amputations, no pain on palpation. Edema on B/L legs upto knee 2+. Pedal pulses present B/L NEURO: AAOx3, no focal neuro deficits, able to move all 4 extremities, no asterixis Objective Labs 03/14/25 15:15 03/14/25 04:12 Labs: Laboratory Results - last 24 hr 03/13/25 03/13/25 03/13/25 17:33 19:10 20:50 WBC 8.3 RBC 2.45 L Hgb 7.8 L Hct 23.3 L MCV 95 MCH 31.8 MCHC 33.5 RDW Std Deviation 57.1 H Plt Count 101 L Neut % (Auto) 60 Lymph % (Auto) 23 [place] % (Auto) 12 Eos % (Auto) 4 Baso % (Auto) 1 Neut # (Auto) 5.0 Lymph # (Auto) 1.9 [place] # (Auto) 1.0 H Eos # (Auto) 0.3 Baso # (Auto) 0.1 Immature Gran # (Auto) 0.02 H Absolute Nucleated RBC 0.00 Immature Gran % 0 Nucleated RBC % 0 PT 15.8 H INR 1.5 H APTT 29.1 Sodium 137 Potassium 2.9 L Chloride 105 Carbon Dioxide 21.8 Anion Gap 10 BUN < 5 L Creatinine 1.0 Estim Creat Clear Calc 78.9 eGFR > 60 BUN/Creatinine Ratio 5 L Glucose 89 Calculated Osmolality 270 L Calcium 8.6 Corrected Calcium 9.4 Phosphorus Magnesium Total Bilirubin 6.3 H AST 46 H ALT 18 Alkaline Phosphatase 84 Total Protein 6.8 Albumin 3.0 L Globulin 3.8 H Albumin/Globulin Ratio 0.8 L Lipase 49 Ur Collection Type Voided Urine Color Drk-Yellow A Urine Clarity Clear Urine pH 6.0 Ur Specific [place] 1.017 Urine Protein Negative Urine Glucose (UA) Negative Urine Ketones Negative Urine Blood Negative Urine Nitrite Negative Urine Bilirubin 1+ A Urine Urobilinogen (Auto) 12 Ur Leukocyte Esterase Negative Urine RBC 2 Urine WBC < 1 Ur Squamous Epith Cells 0 Amorphous Crystals Present A Urine Bacteria Rare Influenza A (Rapid) Negative Influenza B (Rapid) Negative Blood Type Antibody Screen Crossmatch Blood Bank Wristband ID 03/14/25 03/14/25 04:12 06:33 WBC 6.2 RBC 2.17 L Hgb 7.0 L Hct 20.8 L* MCV 96 MCH 32.3 MCHC 33.7 RDW Std Deviation 58.2 H Plt Count 89 L Neut % (Auto) 60 Lymph % (Auto) 22 [place] % (Auto) 12 Eos % (Auto) 5 Baso % (Auto) 1 Neut # (Auto) 3.8 Lymph # (Auto) 1.4 [place] # (Auto) 0.7 Eos # (Auto) 0.3 Baso # (Auto) 0.0 Immature Gran # (Auto) 0.02 H Absolute Nucleated RBC 0.00 Immature Gran % 0 Nucleated RBC % 0 PT 17.3 H INR 1.7 H APTT Sodium 137 Potassium 3.3 L Chloride 103 Carbon Dioxide 23.5 Anion Gap 11 BUN < 5 L Creatinine 1.0 Estim Creat Clear Calc 78.9 eGFR > 60 BUN/Creatinine Ratio 5 L Glucose 96 Calculated Osmolality 271 L Calcium 8.8 Corrected Calcium 9.8 Phosphorus 3.2 Magnesium 1.4 L Total Bilirubin 7.0 H D AST 43 H ALT 17 Alkaline Phosphatase 74 Total Protein 6.3 Albumin 2.8 L Globulin 3.5 Albumin/Globulin Ratio 0.8 L Lipase Ur Collection Type Urine Color Urine Clarity Urine pH Ur Specific [place] Urine Protein Urine Glucose (UA) Urine Ketones Urine Blood Urine Nitrite Urine Bilirubin Urine Urobilinogen (Auto) Ur Leukocyte Esterase Urine RBC Urine WBC Ur Squamous Epith Cells Amorphous Crystals Urine Bacteria Influenza A (Rapid) Influenza B (Rapid) Blood Type A Positive Antibody Screen NEGATIVE Crossmatch See Detail Blood Bank Wristband ID Yes Quality Measures Quality Measures none Assessment & Plan Assessment Current Active Medications: Generic Name Dose Route Start Last Admin Trade Name Freq PRN Reason Stop Dose Admin Acetaminophen 650 mg 03/13/25 23:48 Acetaminophen 325 Mg Tablet PO 04/12/25 23:47 Q6H PRN Fever >100.4 Acetaminophen 650 mg 03/13/25 23:53 Acetaminophen 325 Mg Tablet PO 04/12/25 23:52 Q6H PRN PAIN SCALE 1-3 (mild Carvedilol 3.125 mg 03/14/25 08:00 Carvedilol 3.125 Mg Tablet PO 04/13/25 07:59 On Hold: 03/14/25 08:47 BIDWM OSMAN Furosemide 20 mg 03/14/25 09:00 03/14/25 08:55 Furosemide Inj 10 Mg/Ml 4ml Vial IVP 04/13/25 08:59 20 mg QDAY OSMAN Administration Octreotide Acetate 1,000 mcg/ 102 mls @ 5.1 mls/hr 03/13/25 21:59 03/13/25 22:31 Sodium Chloride IV 03/14/25 17:58 50 mcg/hr .Q20H ONE 5.1 mls/hr Protocol Administration 50 MCG/HR Ondansetron HCl 4 mg 03/13/25 23:48 Ondansetron Inj 2 Mg/Ml Inj 2 Ml IVP 04/12/25 23:47 Q6H PRN NAUSEA OR VOMITING Protocol Pantoprazole Sodium 40 mg 03/14/25 09:00 03/14/25 08:56 Pantoprazole Inj 40 Mg Vial IVP 04/13/25 08:59 40 mg BID OSMAN Administration Sennosides 1 tab 03/13/25 23:58 Senna Tablet PO 04/13/25 08:59 QDAY PRN CONSTIPATION Protocol Spironolactone 50 mg 03/14/25 09:00 03/14/25 08:55 Spironolactone 25 Mg Tablet PO 04/13/25 08:59 50 mg BID OSMAN Administration Plan This is a 64 year old male with past medical history of hypertension and hyperlipidemia who presented with abdominal distension with CT Findings suspicious for gastric and esophageal varices and was admitted for acute decompensated liver cirrhosis. #Acute decompensated cirrhosis, likely secondary to alcohol use disorder #s/p paracentesis #Esophageal varices #Gastric varices #Ascites #Hyperbilirubinemia #Coagulopathy #Thrombocytopenia #Hypoalbuminemia #Alcohol use disorder Patient presented with progressive abdominal Distension with CT scans suspicious for gastric and esophageal varices Upon admission: total bilirubin 6.3, AST 46, PT 15.8, INR 1.5 Currently, labs suggest impaired functionality of the liver in the setting of cirrhosis which is concerning for acute liver failure MELD Score: 20 points s/p 03/14 paracentesis which removed 2.75 L of fluid Ascitic fluid SAAG < 1.8 (suggestive of cirrhotic ascites), negative for SBP (PMN approximately 12) Rx: - Octeotride drip started - IV Pantoprazole loading dose given and currently on 40 mg BID - Carvedilol 3.125mg BID, discontinued. - Lasix 40mg qday - scheduled Spironolactone from 03/14. - Holding off on albumin (less than 4 L drained by paracentesis), will add on 25 mL should patient becoming hypotensive #Normocytic anemia Admission Hgb 7.8, i/s/o acute decompensated cirrhosis w/ ascites, and esophageal and gastric varices Dropped to 7.0 Rx: -See above management for esophageal and gastric varices -Type and Screen -CTM, will consider transfusing if Hgb drops further #Hypertension Past medical history of hypertension, home medication of amlodipine, holding off given spironolactone and Lasix being resumed and leaving room for beta kari. #Hypokalemia Lab value on 03/13 shows potassium-2.9 -KCL 40mEq given in ED -Monitor potassium on next lab values #Hypertension: - Continue Home medication amlodipine 5 mg #Hyperlipidemia -Continue Home medication simvastatin Code status: Full DVT prophylaxis: SCD Diet: NPO Lines: PIV Supplemental O2: none Disposition: Tele Case discussed with attending Dr. Vela and resident Dr. Pineda Darby, DO PGY-1
--- NOTE | 2025-03-14 14:28 | PC.SS ---
Update: EGD Pending. Bereclarissalena will discharge home when medically cleared.
[2025-03-14 15:15] LABS: Peritoneal Fluid Mononuclear 89.3 %; Peritoneal Fluid Polynuclear 10.7 %; Peritoneal Fluid WBC 122 /cmm
[2025-03-14 15:38] LABS: Albumin, Peritoneal Fluid < 1.0 gm/dL; Amylase,Peritoneal Fluid < 20 IU/L; Glucose,Peritoneal Fluid 120 mg/dL; LDH,Peritoneal Fluid 46 IU/L; Protein Total,Peritoneal Fluid < 2 g/dL
[2025-03-14 15:46] LABS: Hematocrit 25.3 % (41.0-53.0)
[2025-03-14 16:00] LABS: Peritoneal Fluid Appearance Clear; Peritoneal Fluid Color Yellow; RBC,Peritoneal Fluid 117 /cmm
[2025-03-14 16:16] LABS: Hemoglobin 8.3 g/dL (13.5-16.0)
--- NOTE | 2025-03-14 19:15 | SUR.PHASEI ---
Arrived to [facility] [place] [facility] via [place]. Report received from Whitney FIELDS. Resting with eyes closed but responds to name, questions and commands appropriately. No c/o pain or discomfort. No s/o distress.
[2025-03-14 19:23] LABS: AFP Non-Pregnant 4.10 ng/mL (<8.10)
--- NOTE | 2025-03-14 19:40 | SUR.PHASEI ---
Taken to room 358 via gurney. Ambulated to bed and made comfortable, tolerated well. Call light within reach. Kajal RN and spouse at bedside. No c/o pain or discomfort, no s/o distress.
[2025-03-14] MEDS: NA SU/NAHCO3/KC/PEG (Golytely) 4,000 ML BTL 4000 ML PO (20:54)
[2025-03-14] MEDS: OCTREOTIDE ACET INJ 1,000 MCG in SODIUM CHLORIDE 0.9% 100 ML 5.1 MCG IV (23:27)
[2025-03-15] VITALS (22 sets, daily range): BP systolic 95–142; BP diastolic 50–91; PULSE 67–87; RESP 12–20; TEMP 36.4–37.2; O2SAT 94–100; BMI 31.7
[2025-03-15 05:29] LABS: Basophils # (Auto) 0.0 Thou/mm3 (0.0-0.2); Basophils % (Auto) 1 % (0-2.5); Eosinophils # (Auto) 0.3 Thou/mm3 (0.0-0.5); Eosinophils % (Auto) 6 % (0-10); Hematocrit 26.7 % (41.0-53.0); Hemoglobin 9.0 g/dL (13.5-16.0); Immature Granulocytes Auto 0.01 Thou/mm3 (0.00-0.00); Lymphocytes # (Auto) 1.5 Thou/mm3 (1.0-4.8); Lymphocytes % (Auto) 28 % (10-50); Mean Corpuscular HGB Conc 33.7 g/dl (31.0-37.0); Mean Corpuscular Hemoglobin 31.7 pg (25.0-35.0); Mean Corpuscular Volume 94 fL (80-100); Monocytes # (Auto) 0.7 Thou/mm3 (0.0-0.8); Monocytes % (Auto) 13 % (0-12); Neutrophils # (Auto) 2.7 Thou/mm3 (1.8-7.7); Neutrophils % (Auto) 52 % (37-80); Nucleated Red Blood Cell # 0.00 Thou/mm3 (0.00-0.00); Nucleated Red Blood Cell % 0 /100 WBC (0); Platelet Count 83 Thou/mm3 (140-440); RDW Standard Deviation 57.0 fL (35.1-43.9); Red Blood Count 2.84 Miln/mm3 (4.50-5.90); White Blood Count 5.2 Thou/mm3 (3.8-10.6)
[2025-03-15 05:57] LABS: Alanine Aminotransferase 15 U/L (10-49); Albumin, Serum 2.8 gm/dL (3.4-4.8); Albumin/Globulin Ratio 0.8 (1.2-2.2); Alkaline Phosphatase 75 U/L (46-116); Anion Gap 9 (7-16); Aspartate Amino Transferase 55 U/L (0-34); BUN/Creatinine Ratio 5 Ratio (12-20); Bilirubin,Total 7.9 mg/dL (0.3-1.2); Blood Urea Nitrogen < 5 mg/dL (9-23); Calcium 8.5 mg/dL (8.3-10.6); Calcium (Corrected) 9.5 mg/dL (8.5-10.1); Carbon Dioxide 25.1 mMol/L (20.0-31.0); Chloride 103 mMol/L (98-107); Creatinine (Component) 1.0 mg/dL (0.6-1.3); Estimated Creatinine Clearance 80.3 mL/min (>60); Globulin 3.4 gm/dL (2.3-3.5); Glucose 92 mg/dL (74-106); Magnesium 1.8 mg/dL (1.6-2.6); Osmolality,Calculated 271 (275-295); Phosphorous 3.2 mg/dL (2.4-5.1); Potassium 3.5 mMol/L (3.4-5.1); Sodium 137 mMol/L (136-145); Total Protein 6.2 gm/dL (5.7-8.2); eGFR > 60 See Note
[2025-03-15 06:27] LABS: HIV (1&2) Antibody Rapid Non-Reactive; Hepatitis A Antibody IgM Non Reactive (Non React); Hepatitis B Core Antibody IgM Non Reactive (Non React); Hepatitis B Surface Antigen Non Reactive (Non React); Hepatitis C Antibody Non Reactive (Non React)
[2025-03-15] MEDS: FUROSEMIDE INJ 10 MG/ML 4ML VIAL 20 MG IVP (08:13)
[2025-03-15] MEDS: SPIRONOLACTONE 25 MG TABLET 50 MG PO ×2 (08:14→20:44)
[2025-03-15] MEDS: Magnesium Sulfate 2 GM Ivpb 2 GM/50 ML BAG IV (08:24)
[2025-03-15] MEDS: POTASSIUM CHLORIDE 10% 20 MEQ/15 ML UDC 40 MEQ PO (08:24)
--- NOTE | 2025-03-15 10:18 | PC.SS ---
SS follow up note; Patient is pending blood cultures. Patient will discharge back home when medically cleared.
--- NOTE | 2025-03-15 13:22 | ESPR_ITS ---
<Statement entered by Mary Vela MD - 03/19/25 12:13> I reviewed above note and agree with findings and plans. I have also personally examined the patient with medicine team and went over assessment and plan with medical team including regulatory affairs intern and resident physician. Documentation for date of: 03/15/25 No overnight events. Patient denied any complains, no fever, or chills overnight. Patient is now s/p paracentesisis, fluid anylysis unremarkable. Total fluid removed 2750 cc, no albumin given as blood pressure has been stable and total fluid removed <5000 cc. Patient is pending colonoscopy. Pending ascetic fluid cultures. - The patient's plan was discussed with attending Dr. Dane Sung MD PGY2 Internal Medicine Subjective Subjective Interval history: No overnight events. Patient was examined at bedside; he appears A&Ox4 and in NAD. He continues to appear yellow with noted scleral icterus and his abdomen appears distended but much less so than yesterday. Labs today noted for 7.0 -> 9.0, platelet count 89 -> 83, magnesium 1.8, total bilirubin 7.0 -> 7.9, AST 55, and albumin 2.8. Plan Updates: -Patient is scheduled for lower endoscopic studies either today or tomorrow, will follow up to evaluate for active sites of bleeding Exam Vital Signs Temp Pulse Resp BP Pulse Ox O2 Del Method O2 Flow Rate 98.5 F 74 16 123/60 97 Room Air 3 03/15/25 12:05 03/15/25 12:05 03/15/25 12:05 03/15/25 12:05 03/15/25 12:05 03/15/25 12:05 03/14/25 19:30 Narrative Exam GENERAL: NAD, AAOx3 HEENT: Moist mucosa. Eyes open, symmetrical, & Yellowing of both eyes are present - Icterus CARDIO: Normal Heart sounds. No Murmurs. PULM: Occasional coughing but no dyspnea. CTA B/L, no R/W/R GI: Abdomen is still somewhat distended but much less so than yesterday. Tenderness on palpation of RUQ. SKIN/MSK/EXT: Yellowing of skin noted.No wounds/rashes/amputations, no pain on palpation. Edema on B/L legs upto knee 2+. Pedal pulses present B/L NEURO: AAOx3, no focal neuro deficits, able to move all 4 extremities, no asterixis Objective Labs 03/15/25 04:58 03/15/25 04:58 Labs: Laboratory Results - last 24 hr 03/14/25 03/14/25 03/14/25 04:12 14:24 15:15 WBC RBC Hgb 8.3 L Hct 25.3 L MCV MCH MCHC RDW Std Deviation Plt Count Neut % (Auto) Lymph % (Auto) [place] % (Auto) Eos % (Auto) Baso % (Auto) Neut # (Auto) Lymph # (Auto) [place] # (Auto) Eos # (Auto) Baso # (Auto) Immature Gran # (Auto) Absolute Nucleated RBC Immature Gran % Nucleated RBC % Sodium Potassium Chloride Carbon Dioxide Anion Gap BUN Creatinine Estim Creat Clear Calc eGFR BUN/Creatinine Ratio Glucose Calculated Osmolality Calcium Corrected Calcium Phosphorus Magnesium Total Bilirubin AST ALT Alkaline Phosphatase Total Protein Albumin Globulin Albumin/Globulin Ratio Tumor Marker AFP 4.10 Peritoneal Color Yellow Peritoneal Appearance Clear Peritoneal WBC 122 Peritoneal RBC 117 [place] Polynucl WBCs 10.7 [place] Mononucl WBCs 89.3 Peritoneal Tot Protein < 2 Peritoneal Albumin < 1.0 Peritoneal LDH 46 Peritoneal Glucose 120 Peritoneal Amylase < 20 Hepatitis A IgM Ab Hep Bs Antigen Hep B Core IgM Ab Hepatitis C Antibody HIV 1&2 Antibody Rapid 03/15/25 04:58 WBC 5.2 RBC 2.84 L Hgb 9.0 L Hct 26.7 L MCV 94 MCH 31.7 MCHC 33.7 RDW Std Deviation 57.0 H Plt Count 83 L Neut % (Auto) 52 Lymph % (Auto) 28 [place] % (Auto) 13 H Eos % (Auto) 6 Baso % (Auto) 1 Neut # (Auto) 2.7 Lymph # (Auto) 1.5 [place] # (Auto) 0.7 Eos # (Auto) 0.3 Baso # (Auto) 0.0 Immature Gran # (Auto) 0.01 H Absolute Nucleated RBC 0.00 Immature Gran % 0 Nucleated RBC % 0 Sodium 137 Potassium 3.5 Chloride 103 Carbon Dioxide 25.1 Anion Gap 9 BUN < 5 L Creatinine 1.0 Estim Creat Clear Calc 80.3 eGFR > 60 BUN/Creatinine Ratio 5 L Glucose 92 Calculated Osmolality 271 L Calcium 8.5 Corrected Calcium 9.5 Phosphorus 3.2 Magnesium 1.8 Total Bilirubin 7.9 H D AST 55 H ALT 15 Alkaline Phosphatase 75 Total Protein 6.2 Albumin 2.8 L Globulin 3.4 Albumin/Globulin Ratio 0.8 L Tumor Marker AFP Peritoneal Color Peritoneal Appearance Peritoneal WBC Peritoneal RBC Periton Polynucl WBCs Periton Mononucl WBCs Peritoneal Tot Protein Peritoneal Albumin Peritoneal LDH Peritoneal Glucose Peritoneal Amylase Hepatitis A IgM Ab Non Reactive Hep Bs Antigen Non Reactive Hep B Core IgM Ab Non Reactive Hepatitis C Antibody Non Reactive HIV 1&2 Antibody Rapid Non-Reactive Quality Measures Quality Measures none Assessment & Plan Assessment Current Active Medications: Generic Name Dose Route Start Last Admin Trade Name Freq PRN Reason Stop Dose Admin Acetaminophen 650 mg 03/13/25 23:48 Acetaminophen 325 Mg Tablet PO 04/12/25 23:47 Q6H PRN Fever >100.4 Acetaminophen 650 mg 03/13/25 23:53 Acetaminophen 325 Mg Tablet PO 04/12/25 23:52 Q6H PRN PAIN SCALE 1-3 (mild Carvedilol 3.125 mg 03/14/25 08:00 03/14/25 16:45 Carvedilol 3.125 Mg Tablet PO 04/13/25 07:59 Not Given On Hold: 03/14/25 08:47 BIDWM OSMAN Furosemide 20 mg 03/14/25 09:00 03/15/25 08:13 Furosemide Inj 10 Mg/Ml 4ml Vial IVP 04/13/25 08:59 20 mg QDAY OSMAN Administration Octreotide Acetate 1,000 mcg/ 102 mls @ 5.1 mls/hr 03/14/25 22:59 03/14/25 23:27 Sodium Chloride IV 03/19/25 22:59 50 mcg/hr .Q20H OSMAN 5.1 mls/hr Protocol Administration 50 MCG/HR Ondansetron HCl 4 mg 03/13/25 23:48 Ondansetron Inj 2 Mg/Ml Inj 2 Ml IVP 04/12/25 23:47 Q6H PRN NAUSEA OR VOMITING Protocol Pantoprazole Sodium 40 mg 03/14/25 09:00 03/15/25 08:14 Pantoprazole Inj 40 Mg Vial IVP 04/13/25 08:59 40 mg BID OSMAN Administration Sennosides 1 tab 03/13/25 23:58 Senna Tablet PO 04/13/25 08:59 QDAY PRN CONSTIPATION Protocol Spironolactone 50 mg 03/14/25 09:00 03/15/25 08:14 Spironolactone 25 Mg Tablet PO 04/13/25 08:59 50 mg BID OSMAN Administration Plan This is a 64 year old male with past medical history of hypertension and hyperlipidemia who presented with abdominal distension with CT Findings suspicious for gastric and esophageal varices and was admitted for acute decompensated liver cirrhosis. #Acute blood loss anemia 2/2 esophageal varices and/or possible gastritis 03/13 admission Hgb 7.8, -> 03/14 Hgb 7.0 03/14 upper endoscopy showed Grade I varices in the lower 3rd of the esophagus and diffuse moderately erythematous mucosa with stigmata of recent bleeding in the gastric antrum Rx: -Patient is scheduled for lower endoscopic studies either today or tomorrow, will follow up to evaluate for active sites of bleeding -CTM Hgb, transfuse if < 7 #Acute decompensated cirrhosis, likely secondary to alcohol use disorder #s/p paracentesis #Esophageal varices #Gastric varices #Ascites #Hyperbilirubinemia #Coagulopathy #Thrombocytopenia #Hypoalbuminemia #Alcohol use disorder Patient presented with progressive abdominal distension with CT scans suspicious for gastric and esophageal varices Upon admission: total bilirubin 6.3, AST 46, PT 15.8, INR 1.5 Currently, labs suggest impaired functionality of the liver in the setting of cirrhosis which is concerning for acute liver failure MELD Score: 20 points s/p 03/14 paracentesis which removed 2.75 L of fluid Ascitic fluid SAAG < 1.8, ascitic protein < 2.5 (suggestive of cirrhotic ascites), negative for SBP (PMN approximately 12) Rx: -Continue octreotide drip started -Continue IV Pantoprazole loading dose given and currently on 40 mg BID -Continue IV Lasix 20 mg qD -Continue PO spironolactone 50 mg BID -Holding off on albumin (less than 4 L drained by paracentesis), will add on 25 mL should patient becoming hypotensive #Hypertension Past medical history of hypertension, home medication of amlodipine Rx: -Continue home medication PO amlodipine 5 mg RRx: -Currently normotensive #Hypokalemia Lab value on 03/13 shows potassium-2.9 -KCL 40mEq given in ED -Monitor potassium on next lab values #Hyperlipidemia -Continue home medication simvastatin Code status: Full DVT prophylaxis: SCD Diet: Clear Liquid Supplemental O2: None Disposition: Tele Case discussed with attending Dr. Vela and resident Dr. Pineda Darby, DO PGY-1
[2025-03-15] MEDS: OCTREOTIDE ACET INJ 1,000 MCG in SODIUM CHLORIDE 0.9% 100 ML 5.1 MCG IV (23:53)
[2025-03-16] VITALS (9 sets, daily range): BP systolic 99–158; BP diastolic 61–78; PULSE 58–83; RESP 18–19; TEMP 36.4–37.6; O2SAT 97–98
[2025-03-16 05:50] LABS: Basophils # (Auto) 0.1 Thou/mm3 (0.0-0.2); Basophils % (Auto) 1 % (0-2.5); Eosinophils # (Auto) 0.3 Thou/mm3 (0.0-0.5); Eosinophils % (Auto) 6 % (0-10); Hematocrit 24.4 % (41.0-53.0); Immature Granulocytes Auto 0.01 Thou/mm3 (0.00-0.00); Lymphocytes # (Auto) 1.8 Thou/mm3 (1.0-4.8); Lymphocytes % (Auto) 33 % (10-50); Mean Corpuscular HGB Conc 34.0 g/dl (31.0-37.0); Mean Corpuscular Hemoglobin 32.3 pg (25.0-35.0); Mean Corpuscular Volume 95 fL (80-100); Monocytes # (Auto) 0.8 Thou/mm3 (0.0-0.8); Monocytes % (Auto) 13 % (0-12); Neutrophils # (Auto) 2.6 Thou/mm3 (1.8-7.7); Neutrophils % (Auto) 47 % (37-80); Nucleated Red Blood Cell # 0.00 Thou/mm3 (0.00-0.00); Nucleated Red Blood Cell % 0 /100 WBC (0); Platelet Count 89 Thou/mm3 (140-440); RDW Standard Deviation 56.5 fL (35.1-43.9); Red Blood Count 2.57 Miln/mm3 (4.50-5.90); White Blood Count 5.6 Thou/mm3 (3.8-10.6)
[2025-03-16 06:10] LABS: Hemoglobin 8.3 g/dL (13.5-16.0)
[2025-03-16 06:12] LABS: Alanine Aminotransferase 16 U/L (10-49); Albumin, Serum 2.7 gm/dL (3.4-4.8); Albumin/Globulin Ratio 0.8 (1.2-2.2); Alkaline Phosphatase 73 U/L (46-116); Anion Gap 9 (7-16); Aspartate Amino Transferase 53 U/L (0-34); BUN/Creatinine Ratio 5 Ratio (12-20); Bilirubin,Total 6.4 mg/dL (0.3-1.2); Blood Urea Nitrogen < 5 mg/dL (9-23); Calcium 8.4 mg/dL (8.3-10.6); Calcium (Corrected) 9.4 mg/dL (8.5-10.1); Carbon Dioxide 26.6 mMol/L (20.0-31.0); Chloride 102 mMol/L (98-107); Creatinine (Component) 1.0 mg/dL (0.6-1.3); Estimated Creatinine Clearance 80.3 mL/min (>60); Globulin 3.3 gm/dL (2.3-3.5); Glucose 88 mg/dL (74-106); Magnesium 1.6 mg/dL (1.6-2.6); Osmolality,Calculated 271 (275-295); Phosphorous 3.4 mg/dL (2.4-5.1); Potassium 3.4 mMol/L (3.4-5.1); Sodium 138 mMol/L (136-145); Total Protein 6.0 gm/dL (5.7-8.2); eGFR > 60 See Note
--- NOTE | 2025-03-16 08:00 | PC.NURSE ---
EDUCATION PROVIDED ON BENEFITS OF SCD, PT REFUSED. PT AMBULATORY.
[2025-03-16] MEDS: FUROSEMIDE INJ 10 MG/ML 4ML VIAL 20 MG IVP (09:06)
[2025-03-16] MEDS: SPIRONOLACTONE 25 MG TABLET 50 MG PO (09:06)
--- NOTE | 2025-03-16 15:36 | ESPR_ITS ---
<Statement entered by Mary Vela MD - 03/19/25 12:15> I reviewed above note and agree with findings and plans. I have also personally examined the patient with medicine team and went over assessment and plan with medical team including business development intern and resident physician. Documentation for date of: 03/16/25 No overnight events. Patient examined at bedside. EGD and colonscopy findings explained at bedside. Continue Octerotride drip, likely to be discharge tomorrow. - The patient's plan was discussed with attending Dr. Dane Sung MD PGY2 Internal Medicine Subjective Subjective Interval history: NAEON, labs reviewed, IV octreotide gtts scheduled until 03/19, IM Team to follow up with Dr. Bhatt. At bedside, patient is pleasant, cooperative and appears well. Continues to appear yellow with noted scleral icterus and jaundice on abdomen. Labs were notable for Hb 8.3 slight drop from yesterday, PT 17.3, INR 1.7, and BMP within normal limits. Colonoscopy completed 03/15 --> hemmorhoids present on perianal exam, colon normal, GI Team recommends continue present meds and low salt diet. Exam Vital Signs Temp Pulse Resp BP Pulse Ox O2 Del Method O2 Flow Rate 97.5 F 71 18 119/65 97 Room Air 3 03/16/25 12:00 03/16/25 12:51 03/16/25 12:00 03/16/25 12:00 03/16/25 12:00 03/16/25 12:00 03/15/25 19:00 Narrative Exam GENERAL: NAD, AAOx3 HEENT: Moist mucosa. Eyes open, symmetrical, & Yellowing of both eyes are present - Icterus CARDIO: Normal Heart sounds. No Murmurs. PULM: Occasional coughing but no dyspnea. CTA B/L, no R/W/R GI: Abdomen is still somewhat distended but much less so than yesterday. Tenderness on palpation of RUQ. SKIN/MSK/EXT: Yellowing of skin noted.No wounds/rashes/amputations, no pain on palpation. Edema on B/L legs upto knee 2+. Pedal pulses present B/L NEURO: AAOx3, no focal neuro deficits, able to move all 4 extremities, no asterixis Objective Labs 10/09/25 05:07 03/16/25 05:07 Labs: Laboratory Results - last 24 hr 03/16/25 05:07 WBC 5.6 RBC 2.57 L Hgb 8.3 L Hct 24.4 L MCV 95 MCH 32.3 MCHC 34.0 RDW Std Deviation 56.5 H Plt Count 89 L Neut % (Auto) 47 Lymph % (Auto) 33 [place] % (Auto) 13 H Eos % (Auto) 6 Baso % (Auto) 1 Neut # (Auto) 2.6 Lymph # (Auto) 1.8 [place] # (Auto) 0.8 Eos # (Auto) 0.3 Baso # (Auto) 0.1 Immature Gran # (Auto) 0.01 H Absolute Nucleated RBC 0.00 Immature Gran % 0 Nucleated RBC % 0 Sodium 138 Potassium 3.4 Chloride 102 Carbon Dioxide 26.6 Anion Gap 9 BUN < 5 L Creatinine 1.0 Estim Creat Clear Calc 80.3 eGFR > 60 BUN/Creatinine Ratio 5 L Glucose 88 Calculated Osmolality 271 L Calcium 8.4 Corrected Calcium 9.4 Phosphorus 3.4 Magnesium 1.6 Total Bilirubin 6.4 H D AST 53 H ALT 16 Alkaline Phosphatase 73 Total Protein 6.0 Albumin 2.7 L Globulin 3.3 Albumin/Globulin Ratio 0.8 L Quality Measures Quality Measures none Assessment & Plan Assessment Current Active Medications: Generic Name Dose Route Start Last Admin Trade Name Freq PRN Reason Stop Dose Admin Acetaminophen 650 mg 03/13/25 23:48 Acetaminophen 325 Mg Tablet PO 04/12/25 23:47 Q6H PRN Fever >100.4 Acetaminophen 650 mg 03/13/25 23:53 Acetaminophen 325 Mg Tablet PO 04/12/25 23:52 Q6H PRN PAIN SCALE 1-3 (mild Furosemide 20 mg 03/14/25 09:00 03/16/25 09:06 Furosemide Inj 10 Mg/Ml 4ml Vial IVP 04/13/25 08:59 20 mg QDAY OSMAN Administration Octreotide Acetate 1,000 mcg/ 102 mls @ 5.1 mls/hr 03/14/25 22:59 03/15/25 23:53 Sodium Chloride IV 03/19/25 22:59 50 mcg/hr .Q20H OSMAN 5.1 mls/hr Protocol Administration 50 MCG/HR Ondansetron HCl 4 mg 03/13/25 23:48 Ondansetron Inj 2 Mg/Ml Inj 2 Ml IVP 04/12/25 23:47 Q6H PRN NAUSEA OR VOMITING Protocol Pantoprazole Sodium 40 mg 03/14/25 09:00 03/16/25 09:06 Pantoprazole Inj 40 Mg Vial IVP 04/13/25 08:59 40 mg BID OSMAN Administration Sennosides 1 tab 03/13/25 23:58 Senna Tablet PO 04/13/25 08:59 QDAY PRN CONSTIPATION Protocol Spironolactone 50 mg 03/14/25 09:00 03/16/25 09:06 Spironolactone 25 Mg Tablet PO 04/13/25 08:59 50 mg BID OSMAN Administration Plan This is a 64 year old male with past medical history of hypertension and hyperlipidemia who presented with abdominal distension with CT Findings suspicious for gastric and esophageal varices and was admitted for acute decompensated liver cirrhosis. #Acute blood loss anemia 2/2 esophageal varices #Acute Upper GI bleed Patient experienced acute blood loss anemia 03/13 admission Hgb 7.8, -> 03/14 Hgb 7.0 03/14 upper endoscopy showed Grade I varices in the lower 3rd of the esophagus and diffuse moderately erythematous mucosa with stigmata of recent bleeding in the gastric antrum - CTM Hgb, transfuse if < 7 - Patient is scheduled for lower endoscopic studies either today or tomorrow, will follow up to evaluate for active sites of bleeding - Colonoscopy completed: perianal hemorrhoids, normal colon - GI Team recommends low salt diet and continue present meds #Acute decompensated cirrhosis, likely secondary to alcohol use disorder #s/p paracentesis #Esophageal varices #Gastric varices #Ascites #Hyperbilirubinemia #Coagulopathy #Thrombocytopenia #Hypoalbuminemia #Alcohol use disorder Patient presented with progressive abdominal distension with CT scans suspicious for gastric and esophageal varices Upon admission: total bilirubin 6.3, AST 46, PT 15.8, INR 1.5 Currently, labs suggest impaired functionality of the liver in the setting of cirrhosis which is concerning for acute liver failure MELD Score: 20 points s/p 03/14 paracentesis which removed 2.75 L of fluid Ascitic fluid SAAG < 1.8, ascitic protein < 2.5 (suggestive of cirrhotic ascites), negative for SBP (PMN approximately 12) - Continue octreotide drip started - Continue IV Pantoprazole loading dose given and currently on 40 mg BID - Continue IV Lasix 20 mg qD - PO spironolactone 50 mg BID --> 100 mg PO spironolactone daily - Holding off on albumin (less than 4 L drained by paracentesis), will add on 25 mL should patient becoming hypotensive #Hypertension Past medical history of hypertension, home medication of amlodipine -Currently normotensive, hold home med start as dc medication #Hyperlipidemia -Continue home medication simvastatin #Hypokalemia RESOLVED Lab value on 03/16 shows potassium-3.4 -Monitor potassium on BMP Code status: Full DVT prophylaxis: SCD Diet: Clear Liquid Supplemental O2: None Disposition: Tele Case was discussed with Attending Dr. Vela, and Resident Dr. Pineda Carr, DO PGY-1
--- NOTE | 2025-03-16 19:48 | PD.IMPROG ---
Documentation for date of: 03/16/25 Subjective Subjective Interval history: Downtrending hemoglobin hematocrit to 8.3 and 24.0 Upper endoscopy has shown gastritis and 1+ esophageal varices and colonoscopy showed 2+ internal hemorrhoids otherwise normal colonoscopy to see Exam Vital Signs Temp Pulse Resp BP Pulse Ox O2 Del Method O2 Flow Rate 97.5 F 82 18 116/70 97 Room Air 3 03/16/25 16:00 03/16/25 16:00 03/16/25 16:00 03/16/25 16:00 03/16/25 16:00 03/16/25 16:00 03/15/25 19:00 Objective Labs 03/16/25 05:07 03/16/25 05:07 Labs: Laboratory Results - last 24 hr 03/16/25 05:07 WBC 5.6 RBC 2.57 L Hgb 8.3 L Hct 24.4 L MCV 95 MCH 32.3 MCHC 34.0 RDW Std Deviation 56.5 H Plt Count 89 L Neut % (Auto) 47 Lymph % (Auto) 33 [place] % (Auto) 13 H Eos % (Auto) 6 Baso % (Auto) 1 Neut # (Auto) 2.6 Lymph # (Auto) 1.8 [place] # (Auto) 0.8 Eos # (Auto) 0.3 Baso # (Auto) 0.1 Immature Gran # (Auto) 0.01 H Absolute Nucleated RBC 0.00 Immature Gran % 0 Nucleated RBC % 0 Sodium 138 Potassium 3.4 Chloride 102 Carbon Dioxide 26.6 Anion Gap 9 BUN < 5 L Creatinine 1.0 Estim Creat Clear Calc 80.3 eGFR > 60 BUN/Creatinine Ratio 5 L Glucose 88 Calculated Osmolality 271 L Calcium 8.4 Corrected Calcium 9.4 Phosphorus 3.4 Magnesium 1.6 Total Bilirubin 6.4 H D AST 53 H ALT 16 Alkaline Phosphatase 73 Total Protein 6.0 Albumin 2.7 L Globulin 3.3 Albumin/Globulin Ratio 0.8 L Impressions Impression: Anemia of blood loss Gastritis 1+ esophageal varices not large for band ligation Internal hemorrhoids Continue octreotide infusion Assessment & Plan A&P Narrative # Abdominal pain rule out SBP coverage with Rocephin as well as large-volume paracentesis # Intractable ascites in the setting of advanced portal hypertension due to cirrhotic liver disease due to moderate to severe consumption of alcohol although patient has been abstinent for 3 months Recommend large-volume paracentesis ultrasound-guided by radiologist Lasix 40 mg IV push daily Spironolactone 25 mg p.o. twice daily # Essential hypertension continue carvedilol and losartan Also recommend AFP Consent obtained for fiberoptic esophagogastroduodenoscopy with possible biopsy possible therapeutic intervention under intravenous moderate sedation Serial CBC Thank you very much for the opportunity to participate in the care of this patient Time Spent With Patient Time: Total time spent is greater than 50% in coordination of care (as documented) at patient's floor/unit and/or counseling patient:
[2025-03-16] MEDS: OCTREOTIDE ACET INJ 1,000 MCG in SODIUM CHLORIDE 0.9% 100 ML 5.1 MCG IV (20:19)
[2025-03-17] VITALS: BP 119/58; PULSE 78; RESP 16; TEMP 37.6; O2SAT 99
[2025-03-17 04:00] VITALS: BP 123/69; PULSE 77; RESP 17; TEMP 37.3; O2SAT 95
[2025-03-17 06:00] VITALS: BP 122/77; PULSE 78; RESP 20; TEMP 36.6; O2SAT 99
[2025-03-17 06:29] LABS: Basophils # (Auto) 0.1 Thou/mm3 (0.0-0.2); Basophils % (Auto) 1 % (0-2.5); Eosinophils # (Auto) 0.4 Thou/mm3 (0.0-0.5); Eosinophils % (Auto) 5 % (0-10); Hematocrit 23.5 % (41.0-53.0); Immature Granulocytes Auto 0.02 Thou/mm3 (0.00-0.00); Lymphocytes # (Auto) 2.0 Thou/mm3 (1.0-4.8); Lymphocytes % (Auto) 30 % (10-50); Mean Corpuscular HGB Conc 33.6 g/dl (31.0-37.0); Mean Corpuscular Hemoglobin 31.7 pg (25.0-35.0); Mean Corpuscular Volume 94 fL (80-100); Monocytes # (Auto) 0.8 Thou/mm3 (0.0-0.8); Monocytes % (Auto) 13 % (0-12); Neutrophils # (Auto) 3.4 Thou/mm3 (1.8-7.7); Neutrophils % (Auto) 51 % (37-80); Nucleated Red Blood Cell # 0.00 Thou/mm3 (0.00-0.00); Nucleated Red Blood Cell % 0 /100 WBC (0); Platelet Count 83 Thou/mm3 (140-440); RDW Standard Deviation 55.7 fL (35.1-43.9); Red Blood Count 2.49 Miln/mm3 (4.50-5.90); White Blood Count 6.7 Thou/mm3 (3.8-10.6)
[2025-03-17 06:32] LABS: Hemoglobin 7.9 g/dL (13.5-16.0)
[2025-03-17 06:49] LABS: Alanine Aminotransferase 13 U/L (10-49); Albumin, Serum 2.7 gm/dL (3.4-4.8); Albumin/Globulin Ratio 0.8 (1.2-2.2); Alkaline Phosphatase 67 U/L (46-116); Anion Gap 10 (7-16); Aspartate Amino Transferase 43 U/L (0-34); BUN/Creatinine Ratio 5 Ratio (12-20); Bilirubin,Total 5.3 mg/dL (0.3-1.2); Blood Urea Nitrogen 6 mg/dL (9-23); Calcium 8.4 mg/dL (8.3-10.6); Calcium (Corrected) 9.4 mg/dL (8.5-10.1); Carbon Dioxide 25.0 mMol/L (20.0-31.0); Chloride 103 mMol/L (98-107); Creatinine (Component) 1.1 mg/dL (0.6-1.3); Estimated Creatinine Clearance 71.3 mL/min (>60); Globulin 3.5 gm/dL (2.3-3.5); Glucose 91 mg/dL (74-106); Magnesium 1.5 mg/dL (1.6-2.6); Osmolality,Calculated 273 (275-295); Phosphorous 3.1 mg/dL (2.4-5.1); Potassium 3.4 mMol/L (3.4-5.1); Sodium 138 mMol/L (136-145); Total Protein 6.2 gm/dL (5.7-8.2); eGFR > 60 See Note
[2025-03-17 08:00] VITALS: BP 120/53; PULSE 71; RESP 14; TEMP 36.2; O2SAT 97
[2025-03-17 08:32] VITALS: BP 120/53; PULSE 71
[2025-03-17] MEDS: SPIRONOLACTONE 25 MG TABLET 100 MG PO (08:32)
[2025-03-17] MEDS: FUROSEMIDE INJ 10 MG/ML 4ML VIAL 20 MG IVP (08:32)
[2025-03-17] MEDS: POTASSIUM CHLORIDE 10% 20 MEQ/15 ML UDC PO (08:42)
[2025-03-17] MEDS: Magnesium Sulfate 4 GM Ivpb 4 GM/50 ML BAG IV (08:42)
--- NOTE | 2025-03-17 10:46 | PC.SS ---
Update: Patient will discharge today.
[2025-03-17 11:55] VITALS: BP 121/64; PULSE 92; RESP 18; TEMP 36.1; O2SAT 96
--- NOTE | 2025-03-17 13:19 | PC.NURSE ---
PT DISCHARGED AT 1213 WITH ALL PAPERS IN THE PACKET . IV REMOVED. PT VERBALIZED UNDERSTANDING OF DISCHARGE PLANS
--- NOTE | 2025-03-17 13:28 | ESDS_ITS ---
<Statement entered by Mary Vela MD - 03/31/25 17:15> I reviewed above note and agree with findings and plans. I have also personally examined the patient with medicine team and went over assessment and plan with medical team including buyer internship and resident physician. Planned Discharge Date 03/17/25 DS: Providers Provider Date of admission: 03/13/25 23:48 Primary care physician: oJse Luque PA-C Admitting Provider: Haim Maciel MD Attending Provider on Admission: Mary Vela MD Consults: 03/13/25 22:50 Consult to Gastroenterology Stat Comment: bleed and cirrhosis Consulting Provider: Roberto Carlos Bhatt 03/14/25 03:27 Referral Respiratory Therapy Routine Comment: Attending Provider on DC: Misha Darby MD Discharging Provider: Msiha Darby MD DS: Diagnosis Problem List Completed Was Problem List Reviewed/Reconciled?: Yes Hospital Course Hospital Course Hospital course: Summary: Patient is a 64-year-old male with a past medical history of hypertension, history of GERD, hyperlipidemia with decreased appetite over the past seven days with concerning features of decompensated liver cirrhosis with extensive past medical history of alcohol use disorder. ER: BP:153/69, [place]:96 bpm , Temp:98.6 F ,Resp :20 Saturating 98 % on room air. Pertinent Labs are Hb:7.8 , WBC:8.3, PLT:101 , Sodium 137 ,Potassium:2.9 ,Total Bilrubin:6.3 , AST:46, ALT:18, ALP:84 , Urine Bilrubin :1+, PT:15.8, INR-1.5 EKG shows Sinus Tachycardia, CT Scan shows Cirrhosis ,Ascites, Suspicious for Gastric and esophageal varices and Mild splenomegaly. Hospital: During patient's hospital course, patient was put on octreotide gtt and IV Protonix and had both upper and lower endoscopic studies done due to concern for bleeding because of his jaundiced appearance and low Hgb values. Upper endoscopy only revealed grade I esophageal varices and erythematous mucosa in the antrum while lower endoscopy only revealed internal hemorrhoids but both were negative for active bleeding. For his ascites, patient was put on IV Lasix + PO spironolactone and had a US-guided paracentesis on 03/14 which drained 2,750 cc of ascitic fluid that was negative for SBP on fluid analysis. By 03/17, patient had been deemed stabilized and discharged with recommendations to stop all alcohol intake and to follow up as soon as possible with a liver specialist so that he may work towards obtaining a possible liver transplant. Patient is safe to discharge to home. Further discharge instructions below. Instructions: - New medication of spironolactone 100 mg orally and Furosemide 20 mg orally once daily for cirrhosis. If systolic blood pressure less than 120 please hold spironolactone and Furosemide -Please follow up with priamry as you may require a propranolol as outpatient. - Pantoprazole 40 mg twice daily for the next 1-2 months, given history of GI bleed. Please follow up with your PCP on duration or Dr. Bhatt. - Stop amlodipine 5 mg once daily - You have been started on a new medication Lactulose. Adjust the dose as necessary to achieve 2-3 bowel movements a day. Hold if >3 bowel movements. - Continue all medications as prescribed - Please follow up with your primary care provider within one week of discharge - If your symptoms worsen,please seek immediate medical attention and return to your nearest emergency room - If you do not have a primary care provider, you may follow up at the [facility] at [address] [place] [address] [address], [place] [address], #Acute decompensated cirrhosis, likely secondary to alcohol use disorder #Acute blood loss anemia 2/2 esophageal varices and/or possible gastritis #Acute upper GI bleed #s/p paracentesis #Esophageal varices #Gastric varices #Ascites #Hyperbilirubinemia #Coagulopathy #Thrombocytopenia #Hypoalbuminemia #Alcohol use disorder #Hypertension #Hypokalemia #Hyperlipidemia Status at Discharge Cognitive/Behavioral Status at Discharge: stable Functional Status at Discharge: independent ambulation Overall Status at Discharge: patient is back to baseline Patient's care plan was discussed with my attending, Dr. Vela, and senior re sident, Dr. Sung. Misha Darby, Internal Medicine, PGY-1 Resident Attestation: I have discussed the case with supervising physician and buyer internship physician involved in the care of patient. I personally saw and examined patient and discussed the assessment and plan with the entire medical team, including attending. I agree with assessment and plan as documented above. Yocasta Sung MD PGY-2 Internal Medicine Time Spent with Patient Time attestation: Total time spent providing and/or coordinating discharge services: Time spent: Greater than 30 minutes Exam Vital Signs Temp Pulse Resp BP Pulse Ox O2 Del Method O2 Flow Rate 96.9 F 92 18 121/64 96 Room Air 3 03/17/25 11:55 03/17/25 11:55 03/17/25 11:55 03/17/25 11:55 03/17/25 11:55 03/17/25 11:55 03/15/25 19:00 Narrative Exam GENERAL: NAD, AAOx3 HEENT: Moist mucosa. Eyes open, symmetrical, & Yellowing of both eyes are present - Icterus CARDIO: Normal Heart sounds. No Murmurs. PULM: Occasional coughing but no dyspnea. CTA B/L, no R/W/R GI: Abdomen is still somewhat distended but much less so than yesterday. Tenderness on palpation of RUQ. SKIN/MSK/EXT: Yellowing of skin noted.No wounds/rashes/amputations, no pain on palpation. Edema on B/L legs upto knee 2+. Pedal pulses present B/L NEURO: AAOx3, no focal neuro deficits, able to move all 4 extremities, no asterixis Discharge Plan Plan Patient Disposition: HOME (Self Care) Patient condition on transfer: Stable Care Plan Goals: Instructions: - New medication of Spironolactone 100 mg orally and Furosemide 20 mg orally once daily for cirrhosis. If systolic blood pressure less than 120 please hold Spironolactone and Furosemide -Please follow up with priamry as you may require a Propranolol as outpatient. - Pantoprazole 40 mg twice daily for the next 1-2 months, given history of GI bleed. Please follow up with your PCP on duration or Dr. Bhatt. - Stop amlodipine 5 mg once daily - You have been started on a new medication Lactulose. Adjust the dose as necessary to achieve 2-3 bowel movements a day. Hold if >3 bowel movements. - Continue all medications as prescribed - Please follow up with your primary care provider within one week of discharge - If your symptoms worsen,please seek immediate medical attention and return to your nearest emergency room - If you do not have a primary care provider, you may follow up at the [facility] at [address], [place] [address], Prescriptions/Referrals Prescriptions/Med Rec: New furosemide [Lasix] 20 mg tablet 20 mg PO QAM 30 Days Qty: 30 0RF spironolactone 100 mg tablet 100 mg PO QAM 30 Days Qty: 30 0RF pantoprazole 40 mg tablet,delayed release (DR/EC) 40 mg PO BID 30 Days Qty: 60 0RF lactulose [Generlac] 10 gram/15 mL solution 20 g PO BID 30 Days Qty: 1800 2RF (DME) blood pressure test kit-medium Kit See Rx Instructions .Route Qty: 1 0RF Rx Instructions: As directed (DME) blood pressure monitor Kit See Rx Instructions .Route Qty: 1 0RF Rx Instructions: As directed Continued Jeanne-Angelica 0.8 mg tablet 1 tab PO Q24H Patient Comments: TAKE 1 TABLET BY MOUTH EVERY DAY cholecalciferol (vitamin D3) 1,250 mcg (50,000 unit) capsule 1,250 mcg PO QWEEK Patient Comments: TAKE 1 CAPSULE BY MOUTH EVERY WEEK FOR 8 WEEKS sodium bicarbonate 325 mg tablet 325 mg PO QDAY Patient Comments: TAKE 1 TABLET BY MOUTH DAILY Discontinued pantoprazole 20 mg tablet,delayed release (DR/EC) 40 mg PO QDAY Patient Comments: TAKE 1 TABLET BY MOUTH EVERY DAY amlodipine 5 mg tablet 5 mg PO QDAY Patient Comments: TAKE 1 TABLET BY MOUTH EVERY DAY Referrals: [facility] [Outside] Roberto Carlos Bhatt MD [Physician, Gastroenterology] Jose Luque PA-C [Primary Care Provider] Patient/Caregiver Discharge Instructions Discharge Activity: activity as tolerated and resume usual activities Education Materials: Esophageal Varices, Paracentesis Dc, Treating Cirrhosis, Understanding Cirrhosis Print Language: Icelandic Stand Alone Forms: Josefina Award Info., Patient Portal Info Letter Discharge Order Discharge Orders: Discharge (Routine); Ordered 03/17/25 Ordered By: Tyshawn Aguiar Quality Discharge Quality Measures VTE prophylaxis (SCDs)
--- NOTE | 2025-03-17 19:59 | PD.IMPROG ---
Documentation for date of: 03/17/25 Subjective Subjective Interval history: Late entry for the note Case discussed with internal medicine team Okay to discharge patient Hemoglobin hematocrit 7.9 and 23.5 Exam Vital Signs Temp Pulse Resp BP Pulse Ox O2 Del Method O2 Flow Rate 96.9 F 92 18 121/64 96 Room Air 3 03/17/25 11:55 03/17/25 11:55 03/17/25 11:55 03/17/25 11:55 03/17/25 11:55 03/17/25 11:55 03/15/25 19:00 Objective Labs 03/17/25 05:45 03/17/25 05:45 Labs: Laboratory Results - last 24 hr 03/17/25 05:45 WBC 6.7 RBC 2.49 L Hgb 7.9 L Hct 23.5 L MCV 94 MCH 31.7 MCHC 33.6 RDW Std Deviation 55.7 H Plt Count 83 L Neut % (Auto) 51 Lymph % (Auto) 30 [place] % (Auto) 13 H Eos % (Auto) 5 Baso % (Auto) 1 Neut # (Auto) 3.4 Lymph # (Auto) 2.0 [place] # (Auto) 0.8 Eos # (Auto) 0.4 Baso # (Auto) 0.1 Immature Gran # (Auto) 0.02 H Absolute Nucleated RBC 0.00 Immature Gran % 0 Nucleated RBC % 0 Sodium 138 Potassium 3.4 Chloride 103 Carbon Dioxide 25.0 Anion Gap 10 BUN 6 L Creatinine 1.1 Estim Creat Clear Calc 71.3 eGFR > 60 BUN/Creatinine Ratio 5 L Glucose 91 Calculated Osmolality 273 L Calcium 8.4 Corrected Calcium 9.4 Phosphorus 3.1 Magnesium 1.5 L Total Bilirubin 5.3 H D AST 43 H ALT 13 Alkaline Phosphatase 67 Total Protein 6.2 Albumin 2.7 L Globulin 3.5 Albumin/Globulin Ratio 0.8 L Impressions Impression: 1+ esophageal varices Gastritis Internal hemorrhoids Okay to discharge patient to be followed by the PCP Assessment & Plan A&P Narrative # Abdominal pain rule out SBP coverage with Rocephin as well as large-volume paracentesis # Intractable ascites in the setting of advanced portal hypertension due to cirrhotic liver disease due to moderate to severe consumption of alcohol although patient has been abstinent for 3 months Recommend large-volume paracentesis ultrasound-guided by radiologist Lasix 40 mg IV push daily Spironolactone 25 mg p.o. twice daily # Essential hypertension continue carvedilol and losartan Also recommend AFP Consent obtained for fiberoptic esophagogastroduodenoscopy with possible biopsy possible therapeutic intervention under intravenous moderate sedation Serial CBC Thank you very much for the opportunity to participate in the care of this patient Time Spent With Patient Time: Total time spent is greater than 50% in coordination of care (as documented) at patient's floor/unit and/or counseling patient:
== END 2025-03-17 12:13 | disposition home or self-care (01) | DRG 432 ==
LOC: SERX 03-14 00:12 → SERHOLD 03-14 01:27 → S3NX 03-14 06:13 → S2NX 03-17 06:00
PROVIDERS: Nurse Practitioner Family; Specialist; Admitting Provider Internal Medicine; PCP Physician Assistant; Visit Provider Internal Medicine
PROC: 0DJD8ZZ Inspection of Lower Intestinal Tract, Via Natural or Artificial Opening Endoscopic (ICD-10-PCS; CPT 43239; principal; 2025-03-14 14:00)
DX: K70.31 Alcoholic cirrhosis of liver with ascites (principal); I85.11 Secondary esophageal varices with bleeding; K29.71 Gastritis, unspecified, with bleeding; D62 Acute posthemorrhagic anemia; K76.6 Portal hypertension; D68.9 Coagulation defect, unspecified; F10.10 Alcohol abuse, uncomplicated; I10 Essential (primary) hypertension; E78.5 Hyperlipidemia, unspecified; E87.6 Hypokalemia; D69.6 Thrombocytopenia, unspecified; E88.09 Other disorders of plasma-protein metabolism, not elsewhere classified; K64.8 Other hemorrhoids; K72.10 Chronic hepatic failure without coma; Z79.899 Other long term (current) drug therapy; I86.4 Gastric varices
CPT/HCPCS: 36415; 74176; 80053; 80074; 81001; 82042; 82105; 82150; 82945; 83615; 83690; 83735; 84100; 84157; 85014; 85018; 85025; 85610; 85730; 86703; 86850; 86900; 86901; 86923; 87040; 87070; 87075; 87081; 87205; 87400; 87502; 87811; 89051; 93005; 93225; 96365; 96375; 96376; 99285; A4314; A4649; C1729; J0696; J1200; J1938; J2250; J2354; J2470; J3010; J3475; J7050; P9016; A9270

== ENCOUNTER → 2025-04-07 | Outpatient (CLI) | payer OTHER, BC, SELFPAY ==
--- NOTE | 2025-04-07 | XR_ITS ---
EXAMINATION: PA lateral chest 2 views TECHNIQUE: Upright PA lateral chest 2 views Date and time: April 07, 2025, 0749 hours, comparison September 22, 2024 INDICATIONS: Coughing 5 years, fluid around the heart on ultrasound examination 2 weeks ago FINDINGS: The heart is not enlarged No pneumonia or pulmonary edema. Mild osteopenia. Moderate thoracic spondylosis IMPRESSION: No active disease
== END | disposition home or self-care (01) ==
PROVIDERS: PCP Nurse Practitioner Family; Referring Provider Nurse Practitioner Family; Visit Provider Nurse Practitioner Family
DX: K70.31 Alcoholic cirrhosis of liver with ascites (principal); R05.3 Chronic cough
CPT/HCPCS: 71046